=== PATIENT | female | born 1945 | race Caucasian/White ===

== ENCOUNTER 2020-04-26 | Outpatient (REF) | payer MEDICARE, SELFPAY | END 2020-04-26 00:01 | disposition home or self-care (01) | LOC: HO.VC | PROVIDERS: Visit Provider Internal Medicine | DX: Z23 Encounter for immunization (principal) | CPT/HCPCS: 0011A ==

== ENCOUNTER 2020-05-23 | Outpatient (REF) | payer MEDICARE, SELFPAY | END 2020-05-23 00:01 | disposition home or self-care (01) | LOC: HO.VC | PROVIDERS: Visit Provider Internal Medicine | DX: Z23 Encounter for immunization (principal) | CPT/HCPCS: 0012A ==

== ENCOUNTER 2020-08-22 08:38 | Outpatient (REF) | payer MEDICARE, SELFPAY ==
--- NOTE | ~2020-08-22 | MM_ITS ---
EXAMINATION: MM SCREENING DIGITAL BREAST TOMOSYNTHESIS, BILATERAL CLINICAL INFORMATION: Screening. Asymptomatic. The lifetime risk of breast cancer based on the Tyrer-Cuzick Model is 2%. COMPARISON: Mammography: 06/24/2018, 09/26/2014 TECHNIQUE: Digital breast tomosynthesis is performed in both the craniocaudal and mediolateral oblique views along with computer-aided detection (CAD). Synthesized 2D images are generated from the tomosynthesis. FINDINGS: There are scattered areas of fibroglandular density (ACR BI-RADS breast composition Category b). There are no significant masses, abnormal calcifications, or other abnormalities. Parenchymal pattern is similar to prior exams. The axilla and skin contours are unremarkable. MM/MM tomosynthesis screening BI IMPRESSION: No mammographic evidence of malignancy. ASSESSMENT: BI-RADS 1: Negative RECOMMENDATION: Routine annual mammography screening. This patient's information was entered into a reminder system with a target due date for their next mammogram.
[2020-08-22 11:44] LABS: Hematocrit 38.1 % (37-47); Hemoglobin 11.9 g/dl (12.0-16.0); Mean Corpuscular HGB Conc 31.2 g/dl (31.0-35.0); Mean Corpuscular Hemoglobin 31.6 pg (27.0-33.0); Mean Corpuscular Volume 101.1 fL (80-98); Mean Platelet Volume 11.5 fL (9.4-12.3); Platelet Count 255 X10*3/uL (160-400); Red Blood Count 3.77 X10*6/uL (4.20-5.50); Red Cell Distribution Width 13.2 % (11.0-16.0); White Blood Count 5.5 X10*3/uL (4.8-10.8)
[2020-08-22 12:15] LABS: Alanine Aminotransferase 14 U/L (0-31); Albumin Level 4.4 g/dL (3.5-5.0); Alkaline Phosphatase 64 U/L (39-117); Anion Gap 14 (12-20); Aspartate Amino Transferase 18 U/L (5-31); Bilirubin Direct 0.2 mg/dL (0.0-0.5); Bilirubin Total 0.7 mg/dL (0.0-1.0); Blood Urea Nitrogen 25 mg/dL (9-16); Calcium 9.9 mg/dL (8.4-10.2); Carbon Dioxide 28 mmol/L (22-29); Chloride 105 mmol/L (96-108); Cholesterol 240 mg/dL; Estimated Glomerular Filt Rate > 60; Glucose Random 99 mg/dL (60-115); HDL Cholesterol 96 mg/dL; LDL Cholesterol Calculated 127 mg/dl; Potassium 4.8 mmol/L (3.3-5.1); Sodium 142 mmol/L (135-145); Triglycerides 87 mg/dL
[2020-08-22 12:26] LABS: Thyroid Stimulating Hormone 2.77 uIU/mL (0.32-4.0)
[2020-08-22 12:54] LABS: Folate 19.6 ng/mL (> or = 4.0); Vitamin B12 334 pg/mL (200-900)
[2020-08-26 11:52] LABS: Vitamin D 25-OH, D2 <4 ng/mL; Vitamin D 25-OH, D3 61 ng/mL; Vitamin D 25-OH, Total 61 ng/mL (30-100)
== END 2020-08-22 08:39 | disposition home or self-care (01) ==
LOC: HO.MAMMO 08:38
PROVIDERS: PCP Internal Medicine; Visit Provider Internal Medicine
DX: Z12.31 Encounter for screening mammogram for malignant neoplasm of breast (principal); I10 Essential (primary) hypertension
CPT/HCPCS: 36415; 77063; 77067; 80048; 80061; 80076; 82306; 82607; 82746; 84443; 85027

== ENCOUNTER 2021-04-06 08:36 | Outpatient (REF) | payer MEDICARE, SELFPAY ==
[2021-04-06 11:36] LABS: Appearance Urine CLEAR; Color Urine YELLOW; Glucose Urine UA NEG (NEG); Leukocyte Esterase Urine NEG (NEG); Nitrite Urine NEG (NEG); Urine Blood NEG (NEG); Urine Ketones NEG (NEG); Urine Protein TRACE MG/DL (NEG-TRACE)
[2021-04-06 11:49] LABS: Hematocrit 39.6 % (37.0-47.0); Hemoglobin 12.5 g/dl (12.0-16.0); Mean Corpuscular HGB Conc 31.6 g/dl (31.0-35.0); Mean Corpuscular Hemoglobin 32.2 pg (27.0-33.0); Mean Corpuscular Volume 102.1 fL (80.0-98.0); Mean Platelet Volume 11.7 fL (9.4-12.3); Platelet Count 226 X10*3/uL (160-400); Red Blood Count 3.88 X10*6/uL (4.20-5.50); Red Cell Distribution Width 13.2 % (11.0-16.0)
[2021-04-06 12:11] LABS: Alanine Aminotransferase 12 U/L (0-31); Albumin Level 4.1 g/dL (3.5-5.0); Alkaline Phosphatase 60 U/L (39-117); Anion Gap 12 (12-20); Aspartate Amino Transferase 14 U/L (5-31); Bilirubin Direct 0.3 mg/dL (0.0-0.5); Bilirubin Total 0.7 mg/dL (0.0-1.0); Blood Urea Nitrogen 20 mg/dL (9-16); Calcium 9.9 mg/dL (8.4-10.2); Carbon Dioxide 28 mmol/L (22-29); Chloride 105 mmol/L (96-108); Cholesterol 225 mg/dL; Estimated Glomerular Filt Rate > 60; Glucose Random 103 mg/dL (60-115); HDL Cholesterol 81 mg/dL; LDL Cholesterol Calculated 129 mg/dl; Potassium 4.3 mmol/L (3.3-5.1); Sodium 141 mmol/L (135-145); Total Protein 6.7 g/dL (6.5-8.0); Triglycerides 77 mg/dL
[2021-04-06 12:30] LABS: Thyroid Stimulating Hormone 3.06 uIU/mL (0.32-4.0)
== END 2021-04-06 08:37 | disposition home or self-care (01) ==
LOC: HO.HMGCLDS 08:36
PROVIDERS: PCP Internal Medicine; Visit Provider Internal Medicine
DX: I10 Essential (primary) hypertension (principal)
CPT/HCPCS: 36415; 80048; 80061; 80076; 81003; 84443; 85027

== ENCOUNTER 2021-04-10 11:54 | Emergency (ER) | payer MEDICARE, SELFPAY ==
--- NOTE | ~2021-04-10 | CT_ITS ---
EXAMINATION: CTA OF THE HEAD/NECK CLINICAL INFORMATION: Dizziness COMPARISON: None. TECHNIQUE: A routine non contrast head CT was performed followed by a 70 mL bolus of Omnipaque 350. Subsequent multidetector helical imaging was performed of the head and neck. Delayed post contrast imaging was also performed through the head. Multiplanar reformats and MIP were also obtained. Internal carotid artery stenoses are assessed in accordance with NASCET criteria unless otherwise indicated. This CT examination was performed using dose optimization techniques as appropriate, variously including the following: *Automated exposure control *Adjustment of mA and/or kV according to patient size (this includes techniques or standardized protocols for targeted exams where dose is matched to indication/reason for exam; i.e. extremities or head) *Use of iterative reconstruction technique DLP: 2230 mGy-cm. FINDINGS: CT HEAD: There is no evidence of acute intracranial hemorrhage or territorial infarction. No abnormal mass effect or midline shift is seen. [place] to white matter differentiation is well preserved. No extra-axial fluid collections are identified. No suspicious leptomeningeal or parenchymal enhancement on the post-contrast images. No hydrocephalus. Proportional prominence of the ventricles and sulcal spaces is consistent with mild volume loss. Patchy periventricular and deep white matter hypoattenuation is consistent with mild small vessel ischemic changes. The osseous structures and soft tissues are normal. Partially opacified left sphenoid sinus. The mastoid air cells and visualized portions of the paranasal sinuses are otherwise well aerated. CTA NECK: The aortic arch is of normal caliber and the origins of the great vessels are patent without evidence of significant stenosis. Calcification at the origin of the left vertebral artery without significant stenosis. The cervical portion of the vertebral arteries are patent bilaterally. No luminal irregularities in the common carotid arteries and the carotid bifurcations are patent bilaterally. Calcifications at the origins of the internal carotid arteries without flow-limiting stenosis. The cervical portion of the internal carotid arteries are of normal caliber. The laryngeal structures and pharyngeal mucosal spaces are unremarkable. The oral cavity appears normal. The parotid and submandibular glands are normal. No pathologically enlarged lymph nodes. 0.6 cm hypoattenuating nodule in the right lobe of the thyroid gland. No follow-up imaging recommended. The lung apices are clear without evidence of pneumothorax. Spinal alignment is maintained. Mild cervical spondylosis is noted. CTA HEAD: The intradural portion of the vertebral arteries are of normal caliber. The basilar, superior cerebellar, and posterior communicating arteries are patent. The posterior, middle, and anterior cerebral arteries are of normal caliber without evidence of significant luminal irregularity. No definite intracranial aneurysms. CT/CT angio head neck IMPRESSION: 1. No acute vascular abnormality. No large vessel occlusion or flow-limiting stenosis. 2. There is calcification noted at the origin of the left vertebral artery, though no significant stenosis associated. 3. No acute intracranial finding.
[2021-04-10 11:56] VITALS: BP 166/71; PULSE 79; RESP 18; TEMP 36.9; O2SAT 99; BMI 23.3
--- NOTE | 2021-04-10 12:01 | ECG_ITS ---
Test Reason : general medication Blood Pressure : / mmHG Vent. Rate : 097 BPM Atrial Rate : 097 BPM P-R Int : 120 ms QRS Dur : 084 ms QT Int : 340 ms P-R-T Axes : 068 062 026 degrees QTc Int : 431 ms Sinus rhythm with Premature atrial complexes Nonspecific ST abnormality Abnormal ECG No previous ECGs available Referred By: Generic ED Physician Electronically Signed By:Michael Pierce
[2021-04-10 12:37] LABS: MANUAL DIFF FLAG NO
[2021-04-10 12:43] LABS: Basophils Percent Auto 0.5 % (0-2); Eosinophils Absolute Auto 0.1 X10*3/uL (0.0-0.4); Eosinophils Percent Auto 0.6 % (0-4); Hematocrit 40.6 % (37.0-47.0); Hemoglobin 12.8 g/dl (12.0-16.0); Imm Gran Abs Auto 0.03 X10*3/uL (0.00-0.03); Imm Gran Pct Auto 0.4 % (0.0-0.4); Lymphocytes Absolute Auto 1.7 X10*3/uL (1.2-4.9); Lymphocytes Percent Auto 21.1 % (20-40); Mean Corpuscular HGB Conc 31.5 g/dl (31.0-35.0); Mean Corpuscular Hemoglobin 32.3 pg (27.0-33.0); Mean Corpuscular Volume 102.5 fL (80.0-98.0); Mean Platelet Volume 11.3 fL (9.4-12.3); Monocytes Absolute Auto 0.7 X10*3/uL (0.1-1.2); Monocytes Percent Auto 8.7 % (2-11); Neutrophils Absolute Auto 5.6 x10*3/uL (2.0-8.3); Neutrophils Percent Auto 68.7 % (45-73); Platelet Count 237 X10*3/uL (160-400); Red Blood Count 3.96 X10*6/uL (4.20-5.50); Red Cell Distribution Width 13.1 % (11.0-16.0); White Blood Count 8.1 X10*3/uL (4.8-10.8)
[2021-04-10 13:00] LABS: Anion Gap 15 (12-20); Blood Urea Nitrogen 20 mg/dL (9-16); Calcium 10.1 mg/dL (8.4-10.2); Carbon Dioxide 28 mmol/L (22-29); Chloride 103 mmol/L (96-108); Creatinine Clr Calc Pharmacy 49.6; Estimated Glomerular Filt Rate > 60; Glucose Random 101 mg/dL (60-115); Potassium 4.6 mmol/L (3.3-5.1); Sodium 141 mmol/L (135-145)
[2021-04-10 18:14] VITALS: BP 157/76; PULSE 97; RESP 16; O2SAT 93
[2021-04-10 19:26] LABS: Appearance Urine CLEAR; Color Urine YELLOW; Glucose Urine UA NEG (NEG); Leukocyte Esterase Urine NEG (NEG); Nitrite Urine NEG (NEG); Urine Blood NEG (NEG); Urine Ketones 15 MG/DL (NEG); Urine Protein NEG (NEG-TRACE)
[2021-04-10 22:14] VITALS: BP 163/72; PULSE 85
[2021-04-10 22:15] VITALS: BP 154/74; PULSE 93
[2021-04-10 22:16] VITALS: BP 128/73; PULSE 93; PULSE 97; RESP 16; TEMP 37.1; O2SAT 99
--- NOTE | 2021-04-10 22:18 | ED_ITS ---
HPI - General Adult General Chief complaint: General Medical Stated complaint: stroke? Time Seen by Provider: 04/10/21 21:52 History of Present Illness HPI narrative: Patient is a 75-year-old female with a history of hypertension high cholesterol. Has been having palpitation. Patient feels her heart going slightly fast also noted that it is irregular. Patient denies any fever chills no cough no congestion or upper respiratory symptoms. Positive episode of loss in vision patient claims that this starts usually from the left eye and moved to the right eye. No particular trigger not related to the palpitation. There is no fever no chills no coughing or congestion or upper respiratory symptoms. There is no diaphoresis. Patient at times feels lightheaded. It lasts for few seconds. Never actually passed out. No focal weakness. No history of cancer. No change in color stool. Not associated with specific movement. Symptoms been on and off for the last 2 weeks. History of anxiety with similar symptoms in the past. Patient is from home. Related Data Home Medications Medication Instructions Recorded Confirmed cholecalciferol (vitamin D3) 50 50 mcg PO DAILY 02/08/20 02/17/20 mcg (2,000 unit) tablet Previous Rx's Medication Instructions Recorded lorazepam 0.5 mg tablet 0.5 mg PO BEDTIME #30 tab 10/12/20 simvastatin 20 mg tablet 20 mg PO BEDTIME #90 tab 12/31/20 amlodipine 5 mg tablet 5 mg PO DAILY #90 tab 04/06/21 levothyroxine 50 mcg tablet 50 mcg PO DAILY #90 tab 04/06/21 Allergies Allergy/AdvReac Type Severity Reaction Status Date / Time Sulfa (Sulfonamide Allergy Unknown RASH, Verified 09/05/20 11:13 Antibiotics) HIVES, [SULFA (SULFONAMIDE swelling, ANTIBIOTICS)] hives,itching Review of Systems Review of Systems: No fever no chills no chest pain or shortness of breath. Positive dizziness on and off. Positive history of anxiety Yes all other systems are reviewed and are negative [facility] Past Medical History Attestation statement: The following information was validated with the patient. Medical History Benign essential HTN Surgical History History of biopsy History of inguinal hernia repair History of parathyroidectomy Family History Family History Father S/P CABG x 4 Mother Hyperlipidemia Hypertension Brother Atherosclerosis Social History Social History Housing: House Alcohol intake: never Patient Tobacco Use Status: Never used Tobacco Advance Directives: No Current occupational status: retired Physical Exam Vital Signs: Vital Signs: Last Vital Signs Temp 98.7 F 04/10/21 22:16 Pulse 97 04/10/21 22:16 Resp 16 04/10/21 22:16 BP 128/73 04/10/21 22:16 Pulse Ox 99 04/10/21 22:16 BMI result Body Mass Index 23.3 Appearance: Alert. Oriented X3. No acute distress. Eyes: Pupils equal, round and reactive to light. Extraocular muscle intact. Intra-ocular pressure was 18 on the right 16 on the left. No evidence for glaucoma. Visual acuity being checked. ENT: Pharynx normal. Neck: Normal inspection. Neck supple. No lymph nodes noted. No crepitus CVS: Normal heart rate and rhythm. Pulses normal. Normal S1 and S2 Respiratory: No respiratory distress. Breath sounds normal. No Wheezing. No rales Abdomen: Soft and nontender. No rigidity. No distention. good BS x4 Skin: Skin warm and dry. Normal skin color. Normal skin turgor. Extremities: No lower extremity edema. Neurovascular intact to all extremities. No Lacerations. No Rash Neuro: Oriented X 3. No motor deficit. No sensory deficit. Moving all extermities. No slurred speech NIH Stroke Scale Internal: Initial- Upon Arrival Level of Consciousness: Alert Level of Consciousness Questions: Answers both questions correctly Level of Consciousness Commands: Performs both tasks correctly Best Gaze: Normal Visual: No visual loss Facial Palsy: Normal Motor Arm (Right): No drift Motor Arm (Left): No drift Motor Leg (Right): No drift Motor Leg (Left): No drift Limb Ataxia: Absent Sensory: Normal Best Language: No aphasia Dysarthia: Normal Extinction and Inattention: No abnormality Score: 0 Medical Decision Making MDM Narrative Medical decision making narrative: Patient vision grossly intact. 20-50 bilaterally. Intra-ocular pressure was less than 20 bilaterally, no evidence for glaucoma. Patient's urine is grossly negative for any acute evidence of infection. CT head was grossly negative for any acute evidence of bleeding no acute evidence of stroke. No evidence of fracture. CTA showed no major vessel occlusion. Neurologically grossly intact. NIH stroke scale 0. sed rate and CRP was low. No evidence for temporal arteritis. History of similar episodes with anxiety. Will discharge patient home. Patient had on EKG in sinus arrhythmia. WA QRS QT within normal limits is no acute ST segment elevation heart rate is approximately 90. Never had any syncopal episode. Medical Records Medical records reviewed: Yes I reviewed the patient's medical records. Lab Data Result diagrams: 04/10/21 12:19 04/10/21 12:19 Labs: Lab Results 04/10/21 04/10/21 04/10/21 Range/Units 12:19 12:19 18:59 WBC 8.1 (4.8-10.8) X10*3/uL RBC 3.96 L (4.20-5.50) X10*6/uL Hgb 12.8 (12.0-16.0) g/dl Hct 40.6 (37.0-47.0) % MCV 102.5 H (80.0-98.0) fL MCH 32.3 (27.0-33.0) pg MCHC 31.5 (31.0-35.0) g/dl RDW 13.1 (11.0-16.0) % Plt Count 237 (160-400) X10*3/uL MPV 11.3 (9.4-12.3) fL Immature Gran % (Auto) 0.4 (0.0-0.4) % Neut % (Auto) 68.7 (45-73) % Lymph % (Auto) 21.1 (20-40) % [place] % (Auto) 8.7 (2-11) % Eos % (Auto) 0.6 (0-4) % Baso % (Auto) 0.5 (0-2) % Lymph # (Auto) 1.7 (1.2-4.9) X10*3/uL [place] # (Auto) 0.7 (0.1-1.2) X10*3/uL Eos # (Auto) 0.1 (0.0-0.4) X10*3/uL Baso # (Auto) 0.0 (0.0-0.2) X10*3/uL Abs Immat Gran (auto) 0.03 (0.00-0.03) X10*3/uL Absolute Neuts (auto) 5.6 (2.0-8.3) x10*3/uL Absolute Nucleated RBC 0.000 (0.0-0.012) X10*3/uL Nucleated RBC % (auto) 0.0 (0.0-0.2) /100WBC ESR (0-20) MM/HR Sodium 141 (135-145) mmol/L Potassium 4.6 (3.3-5.1) mmol/L Chloride 103 (96-108) mmol/L Carbon Dioxide 28 (22-29) mmol/L Anion Gap 15 (12-20) BUN 20 H (9-16) mg/dL Creatinine 0.88 (0.5-1.4) mg/dL Estim Creat Clear Calc 49.6 Estimated GFR > 60 Random Glucose 101 (60-115) mg/dL Calcium 10.1 (8.4-10.2) mg/dL Troponin I High Sens (<3.5-17.0) ng/L C-Reactive Protein (< or = 0.50) mg/dL Urine Color YELLOW Urine Appearance CLEAR Urine pH 6.0 (5.0-8.0) Ur Specific [place] 1.020 (1.005-1.025) Urine Protein NEG (NEG-TRACE) MG/DL Urine Glucose (UA) NEG (NEG) MG/DL Urine Ketones 15 (NEG) MG/DL Urine Blood NEG (NEG) Urine Nitrite NEG (NEG) Ur Leukocyte Esterase NEG (NEG) 04/10/21 04/10/21 04/10/21 Range/Units 22:46 22:46 22:46 WBC (4.8-10.8) X10*3/uL RBC (4.20-5.50) X10*6/uL Hgb (12.0-16.0) g/dl Hct (37.0-47.0) % MCV (80.0-98.0) fL MCH (27.0-33.0) pg MCHC (31.0-35.0) g/dl RDW (11.0-16.0) % Plt Count (160-400) X10*3/uL MPV (9.4-12.3) fL Immature Gran % (Auto) (0.0-0.4) % Neut % (Auto) (45-73) % Lymph % (Auto) (20-40) % [place] % (Auto) (2-11) % Eos % (Auto) (0-4) % Baso % (Auto) (0-2) % Lymph # (Auto) (1.2-4.9) X10*3/uL [place] # (Auto) (0.1-1.2) X10*3/uL Eos # (Auto) (0.0-0.4) X10*3/uL Baso # (Auto) (0.0-0.2) X10*3/uL Abs Immat Gran (auto) (0.00-0.03) X10*3/uL Absolute Neuts (auto) (2.0-8.3) x10*3/uL Absolute Nucleated RBC (0.0-0.012) X10*3/uL Nucleated RBC % (auto) (0.0-0.2) /100WBC ESR 11 (0-20) MM/HR Sodium (135-145) mmol/L Potassium (3.3-5.1) mmol/L Chloride (96-108) mmol/L Carbon Dioxide (22-29) mmol/L Anion Gap (12-20) BUN (9-16) mg/dL Creatinine (0.5-1.4) mg/dL Estim Creat Clear Calc Estimated GFR Random Glucose (60-115) mg/dL Calcium (8.4-10.2) mg/dL Troponin I High Sens 9.4 (<3.5-17.0) ng/L C-Reactive Protein 0.08 (< or = 0.50) mg/dL Urine Color Urine Appearance Urine pH (5.0-8.0) Ur Specific [place] (1.005-1.025) Urine Protein (NEG-TRACE) MG/DL Urine Glucose (UA) (NEG) MG/DL Urine Ketones (NEG) MG/DL Urine Blood (NEG) Urine Nitrite (NEG) Ur Leukocyte Esterase (NEG) Discharge Plan Discharge Clinical Impression: Heart palpitations, Anxiety Patient Disposition: Home, Self-Care Instructions: Heart Palpitations (ED), Anxiety (ED) Prescriptions: No Action lorazepam 0.5 mg tablet 0.5 mg PO BEDTIME Qty: 30 RF: 0 simvastatin 20 mg tablet 20 mg PO BEDTIME Qty: 90 RF: 1 levothyroxine 50 mcg tablet 50 mcg PO DAILY Qty: 90 RF: 1 amlodipine 5 mg tablet 5 mg PO DAILY Qty: 90 RF: 1 cholecalciferol (vitamin D3) 50 mcg (2,000 unit) tablet 50 mcg PO DAILY RF: 0 Referrals: Sandip Tinoco MD [Primary Care Provider] - 2 days
[2021-04-11] LABS: C Reactive Protein 0.08 mg/dL (< or = 0.50)
[2021-04-11 00:06] LABS: Troponin-I High Sensitivity 9.4 ng/L (<3.5-17.0)
[2021-04-11] MEDS: iohexoL 350 MG/ML 100 ML INFUS..BTL 70 ML IV (00:07)
[2021-04-11 00:19] LABS: Erythrocyte Sedimentation Rate 11 MM/HR (0-20)
[2021-04-11 01:03] VITALS: BP 160/72; PULSE 79; RESP 15; O2SAT 99
== END 2021-04-11 01:25 | disposition home or self-care (01) ==
PROVIDERS: Emergency Provider Emergency Medicine Emergency Medical Services; PCP Internal Medicine
DX: R00.2 Palpitations (principal); F41.9 Anxiety disorder, unspecified; I10 Essential (primary) hypertension; E78.5 Hyperlipidemia, unspecified; Z79.02 Long term (current) use of antithrombotics/antiplatelets; Z79.899 Other long term (current) drug therapy
CPT/HCPCS: 36415; 70496; 70498; 80048; 81003; 84484; 85025; 85652; 86140; 93005; 99284; Q9967

== ENCOUNTER 2022-03-07 14:45 | Outpatient (REF) | payer MEDICARE, SELFPAY ==
[2022-03-07 16:31] LABS: Hematocrit 38.3 % (37.0-47.0); Hemoglobin 12.3 g/dl (12.0-16.0); Mean Corpuscular HGB Conc 32.1 g/dl (31.0-35.0); Mean Corpuscular Hemoglobin 32.5 pg (27.0-33.0); Mean Corpuscular Volume 101.1 fL (80.0-98.0); Mean Platelet Volume 12.2 fL (9.4-12.3); Platelet Count 225 X10*3/uL (160-400); Red Blood Count 3.79 X10*6/uL (4.20-5.50); Red Cell Distribution Width 12.8 % (11.0-16.0); White Blood Count 6.6 X10*3/uL (4.8-10.8)
[2022-03-07 16:33] LABS: Appearance Urine Clear; Color Urine Yellow; Glucose Urine UA Negative (Negative); Leukocyte Esterase Urine Negative (Negative); Nitrite Urine Negative (Negative); PH 5.5 (5.0-9.0); Urine Blood Negative (Negative); Urine Ketones Negative (Negative); Urine Protein Negative (Neg-Trace)
[2022-03-07 17:04] LABS: Alanine Aminotransferase 11 U/L (0-31); Albumin Level 4.4 g/dL (3.5-5.0); Alkaline Phosphatase 75 U/L (39-117); Anion Gap 12 (12-20); Aspartate Amino Transferase 14 U/L (5-31); Bilirubin Direct 0.2 mg/dL (0.0-0.5); Bilirubin Total 0.5 mg/dL (0.0-1.0); Blood Urea Nitrogen 19 mg/dL (9-16); Calcium 9.3 mg/dL (8.4-10.2); Carbon Dioxide 28 mmol/L (22-29); Chloride 103 mmol/L (96-108); Cholesterol 216 mg/dL; Estimated Glomerular Filt Rate > 60; Glucose Random 98 mg/dL (60-115); HDL Cholesterol 89 mg/dL; LDL Cholesterol Calculated 113 mg/dl; Potassium 4.1 mmol/L (3.3-5.1); Sodium 139 mmol/L (135-145); Thyroid Stimulating Hormone 3.05 uIU/mL (0.32-4.0); Total Protein 6.8 g/dL (6.5-8.0); Triglycerides 70 mg/dL
== END 2022-03-07 14:46 | disposition home or self-care (01) ==
LOC: HO.HMGCLDS 14:45
PROVIDERS: PCP Internal Medicine; Visit Provider Internal Medicine
DX: Z00.00 Encounter for general adult medical examination without abnormal findings (principal); I10 Essential (primary) hypertension
CPT/HCPCS: 36415; 80048; 80061; 80076; 81003; 84443; 85027

== ENCOUNTER 2022-09-19 14:24 | Outpatient (AMB) | payer MEDICARE, SELFPAY ==
--- NOTE | 2022-09-19 14:26 | MHC.PC.OV ---
Vital Signs 09/19/22 14:28 Height 5 ft 5 in Weight 123 lb BMI 20.5 BP 130/76 Blood Pressure Location Lt brachial Position Sitting Pulse 73 Pulse Source Pulse Oximeter Pulse Oximetry (%) 97 Oxygen Delivery Method Room Air Intake Visit Reasons: Annual Exam Intake Note: Patient is here today for a physical. Travel Rn Or Required: No Assistant Kitchen Manager: Not Required per policy Accompanied by: Self / Same As Patient Allergies meperidine [From Demerol] Allergy (Intermediate, Verified 10/04/22 16:36) Rash Sulfa (Sulfonamide Antibiotics) [SULFA (SULFONAMIDE ANTIBIOTICS)] Allergy (Unknown, Verified 10/04/22 16:36) RASH, HIVES, swelling, hives,itching Medication List - Last Reconciled 10/04/22 by Sandip Tinoco MD amlodipine 5 mg PO DAILY cholecalciferol (vitamin D3) 50 mcg PO DAILY levothyroxine 50 mcg PO DAILY lorazepam 0.5 mg PO BEDTIME PRN simvastatin 20 mg PO BEDTIME Tobacco use date assessed: 09/19/22 Fall risk assessment: No Falls in past year Last assessed Fall Risk: 09/19/22 Dental Screening Dental Screen Date: 09/19/22 Did you have a dental visit in the last 12 months?: Yes Did you have a dental problem in the last 6 months where you did not have access to dental care?: No Was dental information given to patient?: Patient has dentist HPI Annual Exam HPI Details 77-year-old female presents to the office requesting an annual physical. [facility] Medical History Acquired hypothyroidism Benign essential HTN Surgical History History of biopsy History of inguinal hernia repair History of parathyroidectomy History of tooth extraction Family History Father S/P CABG x 4 Mother Hyperlipidemia Hypertension Brother Atherosclerosis Social History Housing: House Alcohol intake: never Patient Tobacco Use Status: Never used Tobacco e-Cigarette/Vaping Use: Never Used Second Hand Smoke Exposure: No service: No Current occupational status: retired Cognitive needs: No Hearing needs: No Vision needs: Yes (Glasses) Questionnaire PHQ-9 Over the last 2 weeks, how often have you been bothered by any of the following problems? 1. Little interest or pleasure in doing things: not at all 2. Feeling down, depressed, or hopeless: not at all 3. Trouble falling or staying asleep, or sleeping too much: not at all 4. Feeling tired or having little energy: not at all 5. Poor appetite or overeating: not at all 6. Feeling bad about yourself - or that you are a failure or have let yourself or your family down: not at all 7. Trouble concentrating on things, such as reading the newspaper or watching television: not at all 8. Moving or speaking so slowly that other people could have noticed. Or the opposite - being so fidgety or restless that you have been moving around a lot more than usual: not at all 9. Thoughts that you would be better off or of hurting yourself in some way: not at all Total score: 0 Depression Screening Interpretation: Negative Source: Developed by Drs. Lamont Nieves, Sole Brito, Sony Kimball and colleagues, with an educational do from [employer]. Thrive Questionnaire Date Thrive assessed: 09/19/22 I am a: Patient What is your living situation today?: I have a steady place to live Within the past 12 months, did the food you bought not last and you didn't have the money to get more?: Never true Within the past 12 months, did you worry whether your food would run out before you got money to buy more?: Never true Do you have trouble paying for medicines?: No Do you have trouble getting transportation to medical appointments?: No Do you have trouble paying your heating and electricity bill?: No Do you have trouble taking care of your child, family member or friend?: No Do you have trouble with day-to-day activities such as bathing, preparing meals, shopping, managing finances, etc.?: No Are you currently unemployed and looking for a job?: No Are you interested in more education?: No Currently or been in a relationship where the following occur: no concerns reported AUDIT C Alcohol Use Questionnaire (AUDIT-C) 1. How often do you have a drink containing alcohol?: Never Total Score: 0 GIULIANA-7 AMB Questionnaire GIULIANA-7 Date GIULIANA - 7 assessed: 09/19/22 Feeling nervous, anxious, or on edge: 3 = Nearly every day Not being able to stop or control worryin = Several days Worrying too much about different things: 1 = Several days Trouble relaxin = Nearly every day Being so restless that it is hard to sit still: 1 = Several days Becoming easily annoyed or irritable: 3 = Nearly every day Feeling afraid as if something awful might happen: 1 = Several days Total GIULIANA-7 score (0-4 normal; 5-9 mild; 10-14 moderate; 15-21 severe): 13 Source: Developed by Drs. Lamont Nieves, Sole Brito, Sony Kimball and colleagues, with an educational do from [employer]. Physical exam (Primary Care) Vital Signs: Last Vital Signs Pulse 73 09/19/22 14:28 BP 130/76 09/19/22 14:28 Pulse Ox 97 09/19/22 14:28 Oxygen Delivery Method Room Air 09/19/22 14:28 BMI result Body Mass Index 20.5 Tobacco/Smoking Status: Tobacco use Status Tobacco use date assessed 09/19/22 09/19/22 14:35 Patient Tobacco Use Status Never used Tobacco 09/19/22 14:35 e-Cigarette/Vaping Use Never Used 09/19/22 14:35 PHQ-9: PHQ-9 Score PHQ-9: Total score 0 09/19/22 14:35 Depression Screening Interpretation: Negative Thrive Assessment: Date of Thrive Assessment Date Thrive assessed 09/19/22 09/19/22 14:35 Currently or been in a relationship where the following occur: no concerns reported Const General: cooperative, healthy appearing and comfortable HENMT Head: Yes normal to inspection and Yes atraumatic Eyes General: appearance normal, both eyes and all related structures Neck Neck: Yes normal visual inspection and Yes full ROM Chest Chest palpation & inspection: normal inspection of the chest Resp Effort & Inspection: normal respiratory effort Auscultation: clear to auscultation bilaterally Cardio Jugular venous distension: no JVD Palpation: normal PMI Rate: regular rate Heart sounds: S1 normal heart sound present and S2 normal heart sound present GI Palpation (GI): Soft to palpation and No hepatosplenomegaly present Extrem General: Yes normal to inspection and Yes full ROM Assessment and Plan Assessment & Plan (1) Annual physical exam: Code(s): Z00.00 - Encounter for general adult medical examination without abnormal findings Plan: Blood work reviewed. Will call with results. (2) Benign essential HTN: Code(s): I10 - Essential (primary) hypertension (3) Generalized anxiety disorder: Code(s): F41.1 - Generalized anxiety disorder (4) Acquired hypothyroidism: Code(s): E03.9 - Hypothyroidism, unspecified Medications: New lorazepam 0.5 mg PO BEDTIME PRN 30 tabs 1RF anxiety Discontinued lorazepam Discontinued Reason: Doctor's Order 0.5 mg PO BEDTIME 30 tabs 0RF Coding Level of Care Code Est Pt Prev Care >65y(52043) Diagnoses Annual physical exam Z00.00 Benign essential HTN I10 Generalized anxiety disorder F41.1 Acquired hypothyroidism E03.9
[2022-09-19 14:28] VITALS: BP 130/76; PULSE 73; O2SAT 97; BMI 20.5
== END 2022-09-19 15:04 | disposition home or self-care (01) ==
PROVIDERS: PCP Internal Medicine; Visit Provider Internal Medicine
DX: Z00.00 Encounter for general adult medical examination without abnormal findings (principal); I10 Essential (primary) hypertension; F41.1 Generalized anxiety disorder; E03.9 Hypothyroidism, unspecified
CPT/HCPCS: 99397

== ENCOUNTER 2022-10-11 10:36 | Outpatient (AMB) | payer MEDICARE, SELFPAY ==
--- NOTE | 2022-10-11 10:38 | AM.OFFWIN_ITS ---
Intake Vital Signs 10/11/22 10:41 Height 5 ft 5 in BP 120/60 Blood Pressure Location Lt brachial Position Sitting Pulse 97 Pulse Source Pulse Oximeter Temp 96.8 F Temp Source Temporal Artery Scan Pulse Oximetry (%) 100 Oxygen Delivery Method Room Air Intake Visit Reasons: EP bump inside nose (lobby) Intake Note: Pt is here c/o having a bump inside her nose. Patient Tobacco Use Status: Never used Tobacco Allergies meperidine [From Demerol] Allergy (Intermediate, Verified 10/11/22 10:40) Rash Sulfa (Sulfonamide Antibiotics) [SULFA (SULFONAMIDE ANTIBIOTICS)] Allergy (Unknown, Verified 10/11/22 10:40) RASH, HIVES, swelling, hives,itching Do you need a note to return to daycare/school/sports/work: No HPI EP bump inside nose (lobby) HPI Details 77-year-old female presents to the walk-in for a sick visit. Patient has a persistently leaking lesion at the base of her right nostril. He she has seen the sheet combining operator who did a biopsy. The biopsy showed an ulcerative lesion with granulation base. She was put on mupirocin ointment and antibiotics. She has had minimal relief. She was then referred to an oral surgeon for possible excision of the lesion. The oral surgeon declined to do the procedure and patient does not know what to do next. She continues to have some drainage from the affected area. [facility] Medical History Acquired hypothyroidism Benign essential HTN Surgical History History of biopsy History of inguinal hernia repair History of parathyroidectomy History of tooth extraction Family History Father S/P CABG x 4 Mother Hyperlipidemia Hypertension Brother Atherosclerosis Social History Housing: House Alcohol intake: never Patient Tobacco Use Status: Never used Tobacco e-Cigarette/Vaping Use: Never Used Second Hand Smoke Exposure: No service: No Current occupational status: retired Cognitive needs: No Hearing needs: No Vision needs: Yes (Glasses) Physical Exam Vital Signs: Last Vital Signs Temp 96.8 F 10/11/22 10:41 Pulse 97 10/11/22 10:41 BP 120/60 10/11/22 10:41 Pulse Ox 100 10/11/22 10:41 Oxygen Delivery Method Room Air 10/11/22 10:41 Skin Other: Upper lip: Weepy granulation tissue drifting down from the edge of the septum. Nontender. Assessment & Plan Assessment & Plan (1) Ulcer of nose: Code(s): J34.0 - Abscess, furuncle and carbuncle of nose Plan: I will get an opinion from the general surgeon to see if he can completely remove the ulcerative part. Spoke for 15 minutes with her sheet combining operator at [facility]. The official pathology reading stated ulcer with granu lation tissue. No evidence of malignancy. In the general surgeon is not able to help, I will seek an opinion from the plastic surgeon. Coding Level of Care Code Est Pt Level 4 (17455) Diagnoses Ulcer of nose J34.0
[2022-10-11 10:41] VITALS: BP 120/60; PULSE 97; TEMP 36; O2SAT 100
== END 2022-10-11 12:48 | disposition home or self-care (01) ==
PROVIDERS: PCP Internal Medicine; Visit Provider Internal Medicine
DX: J34.0 Abscess, furuncle and carbuncle of nose (principal)
CPT/HCPCS: 99214

== ENCOUNTER → 2022-10-11 14:00 | Outpatient (BNV) | payer MEDICARE, SELFPAY ==
--- NOTE | 2022-10-11 14:01 | A.ECONSULT ---
E-Consult Requesting Provider: Earnest Reason for request: Upper lip lesion Was there a discussion with the requesting provider?: No Total time spent: >5 minutes Consulting Provider Opinion: Looks like the lesion can be wedged out. I can see her in the office to evaluate further if that's ok with you.
== END ==
PROVIDERS: PCP Internal Medicine; Visit Provider Surgery
DX: K13.70 Unspecified lesions of oral mucosa (principal)
CPT/HCPCS: 99499

== ENCOUNTER 2022-11-18 07:54 | Outpatient (REF) | payer MEDICARE, SELFPAY ==
[2022-11-18 11:45] LABS: Hematocrit 39.4 % (37.0-47.0); Hemoglobin 12.7 g/dl (12.0-16.0); Mean Corpuscular HGB Conc 32.2 g/dl (31.0-35.0); Mean Corpuscular Hemoglobin 32.9 pg (27.0-33.0); Mean Corpuscular Volume 102.1 fL (80.0-98.0); Mean Platelet Volume 11.6 fL (9.4-12.3); Platelet Count 246 X10*3/uL (160-400); Red Blood Count 3.86 X10*6/uL (4.20-5.50); Red Cell Distribution Width 12.7 % (11.0-16.0); White Blood Count 6.1 X10*3/uL (4.8-10.8)
[2022-11-18 12:14] LABS: Anion Gap 11 (12-20); Blood Urea Nitrogen 12 mg/dL (9-16); Calcium 9.5 mg/dL (8.4-10.2); Carbon Dioxide 29 mmol/L (22-29); Chloride 105 mmol/L (96-108); Estimated Glomerular Filt Rate > 60; Glucose Random 96 mg/dL (60-115); Potassium 4.2 mmol/L (3.3-5.1); Sodium 141 mmol/L (135-145)
== END 2022-11-18 07:55 | disposition home or self-care (01) ==
LOC: HO.HMGCLDS 07:54
PROVIDERS: PCP Internal Medicine; Visit Provider Internal Medicine
DX: J34.0 Abscess, furuncle and carbuncle of nose (principal)
CPT/HCPCS: 36415; 80048; 85027

== ENCOUNTER 2022-12-03 10:13 | Outpatient (REF) | payer MEDICARE, SELFPAY ==
--- NOTE | ~2022-12-03 | CT_ITS ---
EXAMINATION: CT FACIAL BONES WITH CONTRAST CLINICAL INFORMATION: Abscess versus furuncle and carbuncle of nose. COMPARISON: None available. TECHNIQUE: Multidetector helical imaging acquired in the axial plane with generation of reformatted acquisitions. The patient received 85 mL of Omnipaque 350 intravenously for the study. This CT examination was performed using dose optimization techniques as appropriate, variously including the following: *Automated exposure control *Adjustment of mA and/or kV according to patient size (this includes techniques or standardized protocols for targeted exams where dose is matched to indication/reason for exam; i.e. extremities or head) *Use of iterative reconstruction technique DLP: 118 mGy-cm FINDINGS: There is focal soft tissue thickening at the level of the upper philtrum and base of the nasal columella. Periapical lucency is noted around the right central maxillary incisor, status post a previous root canal. There is focal loss of bone anteriorly at this site. No discrete soft tissue fluid collection is seen. The orbits are normal. There is trace mucosal thickening in the dominant right sphenoid sinus cavity. The remaining paranasal sinuses are fairly well aerated. The middle ear cavities and mastoid air cells are clear. The imaged portions of the brain demonstrate no acute abnormality. The parotid and submandibular glands appear normal. The imaged oral cavity, pharyngeal mucosal space, and supraglottic larynx are unremarkable. No upper cervical adenopathy is visible. The carotid sheath vasculature opacifies normally. Hypertrophic facet arthropathy visible in the cervical spine. The temporomandibular joints are normal. CT/CT facial bones w IV con IMPRESSION: Focal soft tissue thickening at the level of the upper philtrum and at the base of the nasal columella in the midline. Correlate with findings on direct visual inspection. No drainable soft tissue fluid collection. Adjacent periapical disease associated with the right central maxillary molar, status post a previous root canal. The possibility of a failed root canal cannot be ruled out with an associated adjacent soft tissue inflammatory process as described.
[2022-12-03] MEDS: iohexoL 350 MG/ML 100 ML INFUS..BTL IV (11:00)
== END 2022-12-03 10:14 | disposition home or self-care (01) ==
LOC: HO.CT 10:13
PROVIDERS: PCP Internal Medicine; Visit Provider Internal Medicine
DX: J34.0 Abscess, furuncle and carbuncle of nose (principal)
CPT/HCPCS: 70487; Q9967

== ENCOUNTER 2023-03-20 13:56 | Outpatient (AMB) | payer MEDICARE, SELFPAY ==
--- NOTE | 2023-03-20 14:21 | MHC.PC.OV ---
Vital Signs 03/20/23 14:22 Height 5 ft 5 in Weight 119 lb 6 oz BMI 19.9 BP 128/62 Blood Pressure Location Lt brachial Position Sitting Pulse 79 Pulse Source Pulse Oximeter Pulse Oximetry (%) 99 Oxygen Delivery Method Room Air Intake Visit Reasons: 6mth f/u Intake Note: Patient is here to follow up on HTN, Hypothyroidism. Arbitrator Required: No Associate Manager: Not Required per policy Accompanied by: Self / Same As Patient Allergies meperidine [From Demerol] Allergy (Intermediate, Verified 03/31/23 06:31) Rash Sulfa (Sulfonamide Antibiotics) [SULFA (SULFONAMIDE ANTIBIOTICS)] Allergy (Unknown, Verified 03/20/23 14:22) RASH, HIVES, swelling, hives,itching Medication List - Last Reconciled 03/31/23 by Sandip Tinoco MD amlodipine 5 mg PO DAILY cholecalciferol (vitamin D3) 50 mcg PO DAILY levothyroxine 50 mcg PO DAILY lorazepam 0.5 mg PO BEDTIME PRN simvastatin 10 mg PO BEDTIME simvastatin 10 mg (1/2 x 20 mg) PO BEDTIME Tobacco use date assessed: 03/20/23 Fall risk assessment: No Falls in past year Last assessed Fall Risk: 03/20/23 Dental Screening Dental Screen Date: 03/20/23 Did you have a dental visit in the last 12 months?: Yes Did you have a dental problem in the last 6 months where you did not have access to dental care?: No Was dental information given to patient?: Patient has dentist HPI 6mth f/u HPI Details 77-year-old female presents to the office to discuss her chronic medical conditions. Since her last office visit, patient did not keep any surgical appointment regarding the granulation tissue around the nose. Her has been sick and she has been taking care of him. She would canceled all her medical appointments. Patient also has some anxiety due to her 's illness. The granulation tissue below the nose has not healed. She does have some discharge occasionally. She is compliant with other medications and is able to do all activities of daily living. [facility] Medical History Acquired hypothyroidism Benign essential HTN Surgical History History of tooth extraction History of biopsy History of inguinal hernia repair History of parathyroidectomy Family History Father S/P CABG x 4 Mother Hyperlipidemia Hypertension Brother Atherosclerosis Social History Housing: House Alcohol intake: never Patient Tobacco Use Status: Never used Tobacco e-Cigarette/Vaping Use: Never Used Second Hand Smoke Exposure: No service: No Current occupational status: retired Cognitive needs: No Hearing needs: No Vision needs: Yes (Glasses) Questionnaire Thrive Questionnaire Date Thrive assessed: 09/19/22 GIULIANA-7 AMB Questionnaire GIULIANA-7 Date GIULIANA - 7 assessed: 09/19/22 Source: Developed by Drs. Lamont Nieves, Sole Brito, Sony Kimball and colleagues, with an educational do from [employer]. Physical exam (Primary Care) Vital Signs: Last Vital Signs Pulse 79 03/20/23 14:22 BP 128/62 03/20/23 14:22 Pulse Ox 99 03/20/23 14:22 Oxygen Delivery Method Room Air 03/20/23 14:22 BMI result Body Mass Index 19.9 Tobacco/Smoking Status: Tobacco use Status Tobacco use date assessed 03/20/23 03/20/23 14:28 Patient Tobacco Use Status Never used Tobacco 03/20/23 14:28 e-Cigarette/Vaping Use Never Used 03/20/23 14:28 Thrive Assessment: Date of Thrive Assessment Date Thrive assessed 09/19/22 03/20/23 14:28 Const General: cooperative and healthy appearing Nutritional Appearance: well nourished Orientation/consciousness: patient oriented x3 Limitations: no limitations HENMT Head: Yes normal to inspection Eyes General: appearance normal, both eyes and all related structures Neck Neck: Yes normal visual inspection Chest Chest palpation & inspection: normal palpation of entire chest wall Resp Effort & Inspection: normal respiratory effort Skin Other: Nose: Philtrum: Tiny weeping wound. Neuro General: patient oriented x3 Assessment and Plan Assessment & Plan (1) Ulcer of nose: Code(s): J34.0 - Abscess, furuncle and carbuncle of nose Plan: A surgical appointment has been requested again. (2) Acquired hypothyroidism: Code(s): E03.9 - Hypothyroidism, unspecified Plan: Patient is euthyroid. (3) Generalized anxiety disorder: Code(s): F41.1 - Generalized anxiety disorder Plan: Counseling for 20 minutes done. Patient is not willing to get any therapy. Coding Level of Care Code Est Pt Level 4 (50498) Diagnoses Ulcer of nose J34.0 Acquired hypothyroidism E03.9 Generalized anxiety disorder F41.1
[2023-03-20 14:22] VITALS: BP 128/62; PULSE 79; O2SAT 99; BMI 19.9
== END 2023-03-20 14:54 | disposition home or self-care (01) ==
PROVIDERS: PCP Internal Medicine; Visit Provider Internal Medicine
DX: J34.0 Abscess, furuncle and carbuncle of nose (principal); E03.9 Hypothyroidism, unspecified; F41.1 Generalized anxiety disorder
CPT/HCPCS: 99214

== ENCOUNTER 2023-06-02 14:49 | Outpatient (AMB) | payer MEDICARE, SELFPAY ==
[2023-06-02 15:08] VITALS: BP 160/70; PULSE 77; O2SAT 99; BMI 20.5
--- NOTE | 2023-06-02 15:08 | A.OFFPC_ITS ---
Vital Signs 06/02/23 15:08 06/02/23 16:04 Height 5 ft 5 in Weight 123 lb BMI 20.5 BP 160/70 H 140/90 H Blood Pressure Location Lt brachial Lt brachial Position Sitting Sitting Pulse 77 Pulse Source Pulse Oximeter Pulse Oximetry (%) 99 Oxygen Delivery Method Room Air Intake Visit Reasons: Cataract L eye 06/09/23, R eye06/30/23 Stacker: Not Required per policy Accompanied by: Self / Same As Patient Allergies meperidine [From Demerol] Allergy (Intermediate, Verified 06/03/23 14:30) NAUSEA/VOMITING Sulfa (Sulfonamide Antibiotics) [SULFA (SULFONAMIDE ANTIBIOTICS)] Allergy (Intermediate, Verified 06/03/23 14:28) RASH, HIVES, SWELLING Medication List - Last Reconciled 06/02/23 by Hector Helton MD amlodipine 5 mg PO DAILY cholecalciferol (vitamin D3) 50 mcg PO DAILY levothyroxine 50 mcg PO DAILY lorazepam 0.5 mg PO BEDTIME PRN simvastatin 10 mg (1/2 x 20 mg) PO BEDTIME Tobacco use date assessed: 06/02/23 Fall risk assessment: No Falls in past year Last assessed Fall Risk: 06/02/23 Dental Screening Dental Screen Date: 06/02/23 Did you have a dental visit in the last 12 months?: Yes Did you have a dental problem in the last 6 months where you did not have access to dental care?: No Was dental information given to patient?: Patient has dentist HPI Cataract L eye 06/09/23, R eye06/30/23 HPI Details Patient comes in today at the request of Dr. Joseph Cruz for a preoperative medical examination for clearance for surgery She is scheduled for cataract extraction/phacoemulsification with IOL of the left eye under MAC on 06/09/2023, followed by the same procedure on the right eye a couple of weeks later on 06/30/2023 Patient states that she feels okay other than having some anxiety about coming in to see a doctor she did not know She denies any headaches or dizziness Denies any chest pains, no SOB No nausea/vomiting, no abdominal pain No change in bowel habits noted She is also requesting for a Cologuard test kit to be ordered for her States that she sees Dr. Munoz for her GI follow up and instead of a regular follow up colonoscopy, would like to just get a Cologuard test for now [facility] Medical History (Updated 06/03/23 @ 19:39 by Hector Helton MD) Vitamin D deficiency Pure hypercholesterolemia PONV (postoperative nausea and vomiting) Arthritis Elevated cholesterol Acquired hypothyroidism Benign essential HTN Surgical History (Updated 06/03/23 @ 14:29 by Erica Patiño RN) H/O colonoscopy History of tooth extraction History of biopsy History of inguinal hernia repair History of parathyroidectomy Family History Father S/P CABG x 4 Mother Hyperlipidemia Hypertension Brother Atherosclerosis Social History Housing: House Are you a primary critical care technician to a significant other at home: No Do you presently have visiting nurse or other home services: No Alcohol intake: never Patient Tobacco Use Status: Never used Tobacco e-Cigarette/Vaping Use: Never Used Second Hand Smoke Exposure: No Have you been hit, kicked, punched, or otherwise hurt by someone within the past year? If so, by whom?: No Are you DNR?: Yes Advance Directives on File: No Recently lost weight without trying: No Nutrition Risks: Surgical patient >75years Poor oral hygiene: No (extracted teeth) service: No Current occupational status: retired Cognitive needs: No Hearing needs: No Vision needs: Yes (Glasses) Questionnaire PHQ-9 Over the last 2 weeks, how often have you been bothered by any of the following problems? 1. Little interest or pleasure in doing things: not at all 2. Feeling down, depressed, or hopeless: not at all 3. Trouble falling or staying asleep, or sleeping too much: not at all 4. Feeling tired or having little energy: not at all 5. Poor appetite or overeating: not at all 6. Feeling bad about yourself - or that you are a failure or have let yourself or your family down: not at all 7. Trouble concentrating on things, such as reading the newspaper or watching television: not at all 8. Moving or speaking so slowly that other people could have noticed. Or the opposite - being so fidgety or restless that you have been moving around a lot more than usual: not at all 9. Thoughts that you would be better off or of hurting yourself in some way: not at all Total score: 0 Depression Screening Interpretation: Negative Depression Screening Done: Yes 28779 - PHQ-9 Billing: Yes Source: Developed by Drs. Lamont Nieves, Sole Brito, Sony Kimball and colleagues, with an educational do from [employer]. Thrive Questionnaire Date Thrive assessed: 06/02/23 I am a: Patient What is your living situation today?: I have a steady place to live Within the past 12 months, did the food you bought not last and you didn't have the money to get more?: Never true Within the past 12 months, did you worry whether your food would run out before you got money to buy more?: Never true Do you have trouble paying for medicines?: No Do you have trouble getting transportation to medical appointments?: No Do you have trouble paying your heating and electricity bill?: No Do you have trouble taking care of your child, family member or friend?: No Do you have trouble with day-to-day activities such as bathing, preparing meals, shopping, managing finances, etc.?: No Are you currently unemployed and looking for a job?: No Are you interested in more education?: No Please select the resources that you would like help with: None Currently or been in a relationship where the following occur: no concerns reported THRIVE Score: 0 AUDIT C Alcohol Use Questionnaire (AUDIT-C) 1. How often do you have a drink containing alcohol?: Never Total Score: 0 Score Reviewed/Action Taken: Yes GIULIANA-7 AMB Questionnaire GIULIANA-7 Date GIULIANA - 7 assessed: 06/02/23 Feeling nervous, anxious, or on edge: 3 = Nearly every day Not being able to stop or control worryin = Not at all Worrying too much about different things: 2 = More than half the days Trouble relaxin = More than half the days Being so restless that it is hard to sit still: 0 = Not at all Becoming easily annoyed or irritable: 2 = More than half the days Feeling afraid as if something awful might happen: 2 = More than half the days Total GIULIANA-7 score (0-4 normal; 5-9 mild; 10-14 moderate; 15-21 severe): 11 Source: Developed by Drs. Lamont Nieves, Sole Brito, Sony Kimball and colleagues, with an educational do from [employer]. Review of Systems Const Denies chills, Denies fatigue, Denies fever(s) and Denies headache(s) Eyes Reports blurry vision ENT Denies dysphagia, Denies dizziness, Denies otalgia, Denies headache(s), Denies neck pain, Denies odynophagia and Denies sore throat Card Denies chest pain, Denies palpitations and Denies dyspnea Resp Denies cough and Denies dyspnea GI Denies abdominal pain, Denies constipation, Denies dysphagia, Denies heartburn, Denies diarrhea, Denies nausea, Denies odynophagia and Denies vomiting Denies difficulty voiding, Denies nocturia and Denies dysuria Musc Denies neck pain Skin/Breast Denies rash Neuro Denies dizziness and Denies headache(s) Endo Denies fatigue and Denies palpitations Physical exam (Primary Care) Vital Signs: Last Vital Signs Pulse 77 06/02/23 15:08 BP 140/90 H 06/02/23 16:04 Pulse Ox 99 06/02/23 15:08 Oxygen Delivery Method Room Air 06/02/23 15:08 BMI result Body Mass Index 20.5 Tobacco/Smoking Status: Tobacco use Status Tobacco use date assessed 06/02/23 06/02/23 15:10 Patient Tobacco Use Status Never used Tobacco 06/02/23 15:10 e-Cigarette/Vaping Use Never Used 06/02/23 15:10 PHQ-9: PHQ-9 Score PHQ-9: Total score 0 06/02/23 16:02 Depression Screening Interpretation: Negative Thrive Assessment: Date of Thrive Assessment Date Thrive assessed 06/02/23 06/02/23 15:10 Currently or been in a relationship where the following occur: no concerns reported Const General: no acute distress and alert HENMT Throat: Yes posterior oropharynx normal and Yes tonsils normal (no TP congestion) Neck Neck: Yes no lymphadenopathy and Yes supple Thyroid: Thyroid normal Resp Auscultation: clear to auscultation bilaterally, no rales and no wheezes Cardio Rate: regular rate Rhythm: regular rhythm Heart sounds: no murmurs GI Palpation (GI): Soft to palpation and nontender Auscultation: normal bowel sounds General: Yes no CVA tenderness Back/Spine/Pelvis Back: no CVA tenderness Thoracic/Lumbar Spine: thoracic and lumbar spine normal to inspection Skin Rashes: no rashes Neuro Cognition (Neuro): normal cognition Extrem General: Yes no clubbing, cyanosis or edema Assessment and Plan Assessment & Plan (1) Preoperative examination: Code(s): Z01.818 - Encounter for other preprocedural examination Plan: Patient presents with acceptable risks for planned low cardiac risk procedure(s) (2) Cataracts, bilateral: Code(s): H26.9 - Unspecified cataract Qualifiers: Cataract type: unspecified Qualified Code(s): H26.9 - Unspecified cataract Plan: She is scheduled for cataract extraction/phacoemulsification with IOL of the left eye under MAC on 06/09/2023, followed by the same procedure on the right eye a couple of weeks later on 06/30/[address] Cruz (3) Benign essential HTN: Code(s): I10 - Essential (primary) hypertension Plan: Reinforced low sodium diet - goal is systolic BP of at least 130 to 140 mm or less Continue Amlodipine 5 mg QD Her blood pressure was high at 160/70 mm when checked initially during her visit today; repeat blood pressure during the latter part of her exam still showed BP to be elevated at 140/90 mm Patient reports that her systolic BP at home usually ranges from 120 to 140 mm consistently and that her anxiety plays a big part in how her blood pressure behaves (4) Pure hypercholesterolemia: Code(s): E78.00 - Pure hypercholesterolemia, unspecified Plan: Reinforced low cholesterol diet Continue Simvastatin 10 mg QD (5) Acquired hypothyroidism: Code(s): E03.9 - Hypothyroidism, unspecified Plan: Continue Levothyroxine 50 mcg QD (6) Vitamin D deficiency: Code(s): E55.9 - Vitamin D deficiency, unspecified Plan: Continue Vitamin D3 2000 units QD (7) Generalized anxiety disorder: Code(s): F41.1 - Generalized anxiety disorder Plan: Continue Lorazepam 0.5 mg Q HS PRN (8) Colon cancer screening: Code(s): Z12.11 - Encounter for screening for malignant neoplasm of colon Plan: Per request, will order Cologuard testing for her She sees Dr. Munoz for GI follow up and states that Dr. Munoz is aware of her preference to do Cologuard testing for now Plan Patient is currently medically optimized and does not appear to have any contraindications to undergo bilateral cataract surgeries as planned - she is medically cleared for surgery To return as scheduled in September 2023 for her annual physical examination with her PCP Orders: Referrals Cologuard Test Z12.11 - Encounter for screening for malignant neoplasm of colon, Z12.12 - Encounter for screening for malignant neoplasm of rectum Coding Level of Care Code Est Pt Level 4 (73506) Diagnoses Preoperative examination Z01.818 Cataract of both eyes, unspecified cataract type H26.9 Cataract type: unspecified Benign essential HTN I10 Pure hypercholesterolemia E78.00 Acquired hypothyroidism E03.9 Vitamin D deficiency E55.9 Generalized anxiety disorder F41.1 Colon cancer screening Z12.11
[2023-06-02 16:04] VITALS: BP 140/90
== END 2023-06-02 16:09 | disposition home or self-care (01) ==
PROVIDERS: PCP Internal Medicine; Visit Provider Internal Medicine
DX: Z01.818 Encounter for other preprocedural examination (principal); H26.9 Unspecified cataract; I10 Essential (primary) hypertension; E78.00 Pure hypercholesterolemia, unspecified; E03.9 Hypothyroidism, unspecified; E55.9 Vitamin D deficiency, unspecified; F41.1 Generalized anxiety disorder; Z12.11 Encounter for screening for malignant neoplasm of colon
CPT/HCPCS: 99214

== ENCOUNTER 2023-06-09 11:21 | Day surgery (SDC) | payer MEDICARE, SELFPAY ==
[2023-06-03 14:43] VITALS: BMI 20.5
[2023-06-09 14:33] VITALS: BP 174/79; PULSE 80; RESP 16; TEMP 37.3; O2SAT 98
[2023-06-09] MEDS: Tetracaine HCl/PF 0.5% Oph Sol 4 ML DROPS 1 DROP EYE-LEFT (14:47)
[2023-06-09] MEDS: Tropicamide 1 % Ophth Sol 3 ML BTL 1 DROP EYE-LEFT ×3 (14:50→14:57)
[2023-06-09] MEDS: Ketorolac Tromethamine 0.5% Op 5 ML DROPS 1 DROP EYE-LEFT ×3 (14:51→14:58)
[2023-06-09] MEDS: Phenylephrine HCL 2.5% Oph SoL 2 ML BOTTLE 1 DROP EYE-LEFT ×3 (14:52→14:59)
[2023-06-09] MEDS: Lactated Ringers 500 ML 50 ML IV (14:54)
--- NOTE | 2023-06-09 15:13 | P.CONAN_ITS ---
HPI - Anesthesia Eval Consult details Narrative: 78 yo female patient for Left cataract extraction, IOL insertion PMFSH Active Problems Active Problems: All Active Problems (Updated 06/09/23 @ 15:10 by Estrellita Amaya MD) Vitamin D deficiency (Acute) Pure hypercholesterolemia (Acute) Cataracts, bilateral (Acute) Preoperative examination (Acute) Ulcer of nose (Acute) Generalized anxiety disorder (Acute) Annual physical exam (Acute) Acquired hypothyroidism (Acute) Benign essential HTN (Acute) Past Medical History Medical History Vitamin D deficiency Pure hypercholesterolemia PONV (postoperative nausea and vomiting) Arthritis Elevated cholesterol Acquired hypothyroidism Benign essential HTN Family History Family History Father S/P CABG x 4 Mother Hyperlipidemia Hypertension Brother Atherosclerosis Family history of problems with anesthesia: No Surgical History Surgical History H/O colonoscopy History of tooth extraction History of biopsy History of inguinal hernia repair History of parathyroidectomy History of Problems with Anesthesia: Yes (PONV) Social History Social History Housing: House Are you a primary patient care coordinator to a significant other at home: No Do you presently have visiting nurse or other home services: No Alcohol intake: never Patient Tobacco Use Status: Never used Tobacco e-Cigarette/Vaping Use: Never Used Second Hand Smoke Exposure: No Have you been hit, kicked, punched, or otherwise hurt by someone within the past year? If so, by whom?: No Are you DNR?: Yes Advance Directives: No Advance Directives Information Provided: Yes Advance Directives on File: No Recently lost weight without trying: No Nutrition Risks: Surgical patient >75years Poor oral hygiene: No (extracted teeth) service: No Current occupational status: retired Cognitive needs: No Hearing needs: No Vision needs: Yes (Glasses) Meds Allergies Allergy/AdvReac Type Severity Reaction Status Date / Time meperidine [From Demerol] Allergy Intermediate NAUSEA/VOMI Verified 06/09/23 14:31 TING Sulfa (Sulfonamide Allergy Intermediate RASH, Verified 06/09/23 14:31 Antibiotics) HIVES, [SULFA (SULFONAMIDE SWELLING ANTIBIOTICS)] Active Medications: Current Medications Lactated Ringer's (Lr) 500 mls @ 50 mls/hr IV .Q10H DENISE Stop: 06/09/23 18:59 Last Admin: 06/09/23 14:54 Dose: 50 mls/hr Povidone Iodine (Povidone Iodine 5 % Ophth Soln 30 Ml Bottle) 1 appl EYE-LEFT PREOP PRN PRN Reason: Pre-Op Surgical Implant Prophy Home Medications Medication Instructions Recorded Confirmed Last Taken Type cholecalciferol (vitamin D3) 50 50 mcg PO DAILY 02/08/20 06/03/23 Unknown History mcg (2,000 unit) tablet amlodipine 5 mg tablet 5 mg PO QPM 06/03/23 06/03/23 Unknown History levothyroxine 50 mcg tablet 50 mcg PO QAM 06/03/23 06/03/23 06/09/23 08:00 History simvastatin 20 mg tablet 10 mg PO QPM 06/03/23 06/03/23 Unknown History Exam Height,Weight and Vital Signs: Height 5 ft 5 in Weight 55.792 kg Last Vital Signs Temp 99.2 F 06/09/23 14:33 Pulse 80 06/09/23 14:33 Resp 16 06/09/23 14:33 BP 174/79 H 06/09/23 14:33 Pulse Ox 98 06/09/23 14:33 O2 Del Method Room Air 06/09/23 14:33 Airway Mallampati Class: II TM Dist: >3cm Neck ROM: Full Loose/Missing/Broken Teeth: Yes (Some missing- extracted. Denies broken or loose teeth) Heart: RRR Lungs: CTAB Assessment and Plan Assessment Anesthesia Assessment: Anesthesia Plan Discussed and Chart Reviewed Final Anesthetic Review Family History of Problems with Anesthesia: No History of Problems with Anesthesia: Yes (PONV) NPO: Yes ASA Class: II Final Preanesthetic Review: No Changes in Pt Med Stat, Meds/Allgs Chart Reviewed, Consent Obtained/Reviewed, Anes Risks/Benef Reviewed and DNR Form (If Appl.) Patient Risk: Low Procedure Risk: Low Assessment/Block/Sedation in SS: Assess/Block/Sedation-SS Anesthetic Plan Anesthetic Plan: MAC: Disposition: Standard PACU
--- NOTE | 2023-06-09 15:26 | MHC.SHP ---
Pre-Procedural Eval Section A - 24 Hr Update-Section A only Date of Service: 06/09/23 The patient is an INPATIENT: No Changes since office visit: No Cold of Flu in the past 2 weeks, No New Medical Problems, No Changes in Medication and No Patient answered all questions The patient has been examined within 24 hours of the surgical procedure. The History & Physical has been completed within 30 days and I have reviewed it.: Yes Section B - Complete if H&P > 30 days Chief Complaint: Age-related nuclear cataract, left eye Allergies: Allergies Allergy/AdvReac Type Severity Reaction Status Date / Time meperidine [From Demerol] Allergy Intermediate NAUSEA/VOMI Verified 06/09/23 14:31 TING Sulfa (Sulfonamide Allergy Intermediate RASH, Verified 06/09/23 14:31 Antibiotics) HIVES, [SULFA (SULFONAMIDE SWELLING ANTIBIOTICS)] Plan Diagnosis/Plan: Unchanged I have reviewed the history and physical and performed a pertinent physical examination on my patient. No changes have occurred unless specified. Time Spent With Patient Time: Total time managing care of this patient today ____ minutes.
--- NOTE | 2023-06-09 15:28 | HO.PNOPHT ---
Ophthalmology Procedure Procedure Date of Service: 06/09/23 Ophthalmology Viscoelastic: Healon Duet Dual Pack Pro Ophthalmology Lenses: Other (ma60 17.5) Procedure Notes: PREOPERATIVE DIAGNOSIS: Decreased visual acuity left eye secondary to cataract POSTOPERATIVE DIAGNOSIS: Same PROCEDURE: Left cataract extraction with intraocular lens insertion SURGEON: Joseph Cruz M.D. ANESTHESIA: Topical/MAC ESTIMATED BLOOD LOSS: None COMPLICATIONS: None After obtaining informed consent, the patient was brought to the operation room suite and placed in the supine position. After adequate sedation per anesthesia, topical drops of Tetracaine were given to the left eye. The eye was then prepped and draped in the usual sterile fashion. The operating room microscope was then positioned over the operative eye and a lid speculum placed. A paracentesis was created. Viscoelastic was then instilled into the anterior chamber. A three plane incision was then created temporally, utilizing a 2.85 mm keratome. Capsulotomy forceps were then utilized to create a circular tear capsulotomy. Hydrodissection and hydrodelineation were carried out until adequate mobilization of the nucleus occurred. Phacoemulsification was then utilized to remove the dense central nucleus followed by removal of the cortical material utilizing the automated aspiration irrigation unit. Viscoat elastic was instilled into the posterior capsular bag followed by placement of a posterior chamber intraocular lens without difficulty. The residual Viscoat elastic was then removed utilizing the automated IA machine. The wound was check and found to be watertight. The patient tolerated the procedure well and the lid speculum was removed. Intracameral injection of Vigamox 0.1 mL followed by a subtenon injection of Kenalog-40 0.2 mL were administered. The patient will be seen in the a.m.
[2023-06-09 16:18] VITALS: BP 152/66; PULSE 77; RESP 18; TEMP 37.2; O2SAT 98
[2023-06-09 16:33] VITALS: BP 139/70; PULSE 80; RESP 20; TEMP 37; O2SAT 99
== END 2023-06-09 16:34 | disposition home or self-care (01) ==
PROVIDERS: PCP Internal Medicine; Visit Provider Ophthalmology
PROC: (CPT 66985; principal; 2023-06-09 13:00)
DX: H25.12 Age-related nuclear cataract, left eye (principal); H54.7 Unspecified visual loss; I10 Essential (primary) hypertension; E78.00 Pure hypercholesterolemia, unspecified; E03.9 Hypothyroidism, unspecified; H35.363 Drusen (degenerative) of macula, bilateral; H18.413 Arcus senilis, bilateral; Z79.899 Other long term (current) drug therapy; Z88.2 Allergy status to sulfonamides; Z66 Do not resuscitate; Z88.8 Allergy status to other drugs, medicaments and biological substances
CPT/HCPCS: 66984; J2250; J2405; J3010; J3301; V2630

== ENCOUNTER 2023-06-30 08:02 | Day surgery (SDC) | payer MEDICARE, SELFPAY ==
[2023-06-03 14:46] VITALS: BMI 20.5
--- NOTE | 2023-06-26 13:58 | HO.ANESPROP2 ---
Documented by User: Savanah Quinn NP 06/26/23 13:58 HPI - Anesthesia Eval Consult details Narrative: 78yo F for Right Cataract Extraction IOL Insertion Optimized per PCP Left eye 06/09/23: Midaz 2 PMFSH Active Problems Active Problems: All Active Problems Vitamin D deficiency (Acute) Pure hypercholesterolemia (Acute) Cataracts, bilateral (Acute) Preoperative examination (Acute) Ulcer of nose (Acute) Generalized anxiety disorder (Acute) Annual physical exam (Acute) Acquired hypothyroidism (Acute) Benign essential HTN (Acute) Past Medical History Medical History Vitamin D deficiency Pure hypercholesterolemia PONV (postoperative nausea and vomiting) Arthritis Elevated cholesterol Acquired hypothyroidism Benign essential HTN Family History Family History Father S/P CABG x 4 Mother Hyperlipidemia Hypertension Brother Atherosclerosis Family history of problems with anesthesia: No Surgical History Surgical History H/O colonoscopy History of tooth extraction History of biopsy History of inguinal hernia repair History of parathyroidectomy History of Problems with Anesthesia: Yes (PONV) Social History Social History Housing: House Are you a primary hemodialysis patient care specialist to a significant other at home: No Do you presently have visiting nurse or other home services: No Alcohol intake: never Patient Tobacco Use Status: Never used Tobacco e-Cigarette/Vaping Use: Never Used Second Hand Smoke Exposure: No Have you been hit, kicked, punched, or otherwise hurt by someone within the past year? If so, by whom?: No Are you DNR?: Yes Advance Directives: No Advance Directives Information Provided: Yes Advance Directives on File: No Recently lost weight without trying: No Eating poorly because of decreased appetite: No Nutrition Risks: Surgical patient >75years Poor oral hygiene: No (extracted teeth) service: No Current occupational status: retired Cognitive needs: No Hearing needs: No Vision needs: Yes (Glasses) Meds Allergies Allergy/AdvReac Type Severity Reaction Status Date / Time meperidine [From Demerol] Allergy Intermediate NAUSEA/VOMI Verified 06/09/23 14:31 TING Sulfa (Sulfonamide Allergy Intermediate RASH, Verified 06/09/23 14:31 Antibiotics) HIVES, [SULFA (SULFONAMIDE SWELLING ANTIBIOTICS)] Home Medications ?Medication ?Instructions ?Recorded ?Confirmed ?Last Taken ?Type cholecalciferol (vitamin D3) 50 50 mcg PO DAILY 02/08/20 06/03/23 Unknown History mcg (2,000 unit) tablet amlodipine 5 mg tablet 5 mg PO QPM 06/03/23 06/03/23 Unknown History levothyroxine 50 mcg tablet 50 mcg PO QAM 06/03/23 06/03/23 06/09/23 08:00 History simvastatin 20 mg tablet 10 mg PO QPM 06/03/23 06/03/23 Unknown History Exam Height,Weight and Vital Signs: Height 5 ft 5 in Weight 55.792 kg Assessment and Plan Assessment Anesthesia Assessment: Chart Reviewed Final Anesthetic Review Family History of Problems with Anesthesia: No History of Problems with Anesthesia: Yes (PONV) Documented by User: Juani Spear MD 06/30/23 09:54 PMFSH Past Medical History Medical History Vitamin D deficiency Pure hypercholesterolemia PONV (postoperative nausea and vomiting) Arthritis Elevated cholesterol Acquired hypothyroidism Benign essential HTN Family History Family History Father S/P CABG x 4 Mother Hyperlipidemia Hypertension Brother Atherosclerosis Surgical History Surgical History H/O colonoscopy History of tooth extraction History of biopsy History of inguinal hernia repair History of parathyroidectomy Social History Social History Housing: House Are you a primary hemodialysis patient care specialist to a significant other at home: No Do you presently have visiting nurse or other home services: No Alcohol intake: never Patient Tobacco Use Status: Never used Tobacco e-Cigarette/Vaping Use: Never Used Second Hand Smoke Exposure: No Have you been hit, kicked, punched, or otherwise hurt by someone within the past year? If so, by whom?: No Are you DNR?: Yes Advance Directives: No Advance Directives Information Provided: Yes Advance Directives on File: No Recently lost weight without trying: No Eating poorly because of decreased appetite: No Nutrition Risks: Surgical patient >75years Poor oral hygiene: No (extracted teeth) service: No Current occupational status: retired Cognitive needs: No Hearing needs: No Vision needs: Yes (Glasses) Meds Allergies Allergy/AdvReac Type Severity Reaction Status Date / Time meperidine [From Demerol] Allergy Intermediate NAUSEA/VOMI Verified 06/09/23 14:31 TING Sulfa (Sulfonamide Allergy Intermediate RASH, Verified 06/09/23 14:31 Antibiotics) HIVES, [SULFA (SULFONAMIDE SWELLING ANTIBIOTICS)] Home Medications ?Medication ?Instructions ?Recorded ?Confirmed ?Last Taken ?Type cholecalciferol (vitamin D3) 50 50 mcg PO DAILY 02/08/20 06/03/23 Unknown History mcg (2,000 unit) tablet amlodipine 5 mg tablet 5 mg PO QPM 06/03/23 06/03/23 Unknown History levothyroxine 50 mcg tablet 50 mcg PO QAM 06/03/23 06/03/23 06/09/23 08:00 History simvastatin 20 mg tablet 10 mg PO QPM 06/03/23 06/03/23 Unknown History Exam Airway Mallampati Class: II TM Dist: >3cm Neck ROM: Full Heart: rrr Lungs: cta Assessment and Plan Assessment Anesthesia Assessment: Anesthesia Plan Discussed Final Anesthetic Review NPO: Yes ASA Class: II Final Preanesthetic Review: No Changes in Pt Med Stat, Meds/Allgs Chart Reviewed, Consent Obtained/Reviewed and Anes Risks/Benef Reviewed Patient Risk: Intermediate Procedure Risk: Low Anesthetic Plan Anesthetic Plan: MAC: Disposition: Standard PACU
[2023-06-30] MEDS: Tetracaine HCl/PF 0.5% Oph Sol 4 ML DROPS 1 DROP EYE-RIGHT (09:36)
[2023-06-30] MEDS: Lactated Ringers 500 ML 50 ML IV (09:36)
[2023-06-30] MEDS: Cyclopentolate 1 % Ophth Sol 2 ML DRPBTL 1 DROP EYE-RIGHT ×3 (09:37→10:01)
[2023-06-30] MEDS: Tropicamide 1 % Ophth Sol 3 ML BTL 1 DROP EYE-RIGHT ×3 (09:40→10:04)
[2023-06-30] MEDS: Ketorolac Tromethamine 0.5% Op 5 ML DROPS 1 DROP EYE-RIGHT ×3 (09:43→10:07)
[2023-06-30] MEDS: Phenylephrine HCL 2.5% Oph SoL 2 ML BOTTLE 1 DROP EYE-RIGHT ×3 (09:46→10:10)
[2023-06-30 10:00] VITALS: BP 167/52; PULSE 74; RESP 16; TEMP 36.8; O2SAT 100; BMI 20.8
--- NOTE | 2023-06-30 11:21 | P.PCNO_ITS ---
Ophthalmology Procedure Procedure Date of Service: 06/30/23 Ophthalmology Viscoelastic: Healon Duet Dual Pack Pro Ophthalmology Lenses: IOL Acrysof MP - MA60AC (18) Procedure Notes: PREOPERATIVE DIAGNOSIS: Decreased visual acuity right eye secondary to cataract POSTOPERATIVE DIAGNOSIS: Same PROCEDURE: Right cataract extraction with intraocular lens insertion SURGEON: Joseph Cruz M.D. ANESTHESIA: Topical/MAC ESTIMATED BLOOD LOSS: None COMPLICATIONS: None After obtaining informed consent, the patient was brought to the operating room suite and placed in the supine position. After adequate sedation per anesthesia, topical drops of Tetracaine were given to the right eye. The eye was then prepped and draped in the usual sterile fashion. The operating room microscope was then positioned over the operative eye and a lid speculum placed. A paracentesis was created. Viscoelastic was then instilled into the anterior chamber. A three plane incision was then created temporally, utilizing a 2.85 mm keratome. Capsulotomy forceps were then utilized to create a circular tear capsulotomy. Hydrodissection and hydrodelineation were carried out until adequate mobilization of the nucleus occurred. Phacoemulsification was then utilized to remove the dense central nucl eus followed by removal of the cortical material utilizing the automated aspiration irrigation unit. Viscoelastic was instilled into the posterior capsular bag followed by placement of a posterior chamber intraocular lens without difficulty. The residual Viscoelastic was then removed utilizing the automated IA machine. The wound was checked and found to be watertight. The patient tolerated the procedure well and the lid speculum was removed. Intracameral injection of Vigamox 0.1 mL followed by a subtenon injection of Kenalog-40 0.2 mL were administered. The patient will be seen in the a.m.
[2023-06-30 11:29] VITALS: BP 123/59; PULSE 74; RESP 18; TEMP 36.2; O2SAT 100
== END 2023-06-30 12:09 | disposition home or self-care (01) ==
PROVIDERS: PCP Internal Medicine; Visit Provider Ophthalmology
PROC: (CPT 66985; principal; 2023-06-30 12:50)
DX: H25.11 Age-related nuclear cataract, right eye (principal); H54.7 Unspecified visual loss; H35.363 Drusen (degenerative) of macula, bilateral; H18.413 Arcus senilis, bilateral; I10 Essential (primary) hypertension; E78.00 Pure hypercholesterolemia, unspecified; E03.9 Hypothyroidism, unspecified; Z66 Do not resuscitate; Z79.899 Other long term (current) drug therapy; Z88.2 Allergy status to sulfonamides; Z88.5 Allergy status to narcotic agent
CPT/HCPCS: 66984; J2250; J3010; J3301; V2630

== ENCOUNTER 2023-08-19 12:43 | Outpatient (AMB) | payer MEDICARE, SELFPAY ==
[2023-08-19 12:55] VITALS: BP 178/75; PULSE 83; BMI 20.1
--- NOTE | 2023-08-19 12:55 | MHC.OFFVIS ---
Vital Signs 08/19/23 12:55 Height 5 ft 5 in Weight 121 lb BMI 20.1 BP 178/75 H Blood Pressure Location Rt brachial Position Sitting Pulse 83 Intake Visit Reasons: Non healing lesion~ nose Intake Note: Patient referred by PCP Dr. Tinoco for non healing lesion on nose. Present for 10+ yrs. Was seen by histology technician and lesion has been biopsied X3 @ [facility]. Used abx oint, fiordaliza's bees cr, saline w/gauze, vaseline. Patient c/o: lesion keeps growing back, bleeds, oozes. No hx of skin CA. Geothermal Field Technician Required: No Accompanied by: Self / Same As Patient Allergies meperidine [From Demerol] Allergy (Intermediate, Verified 08/19/23 12:59) NAUSEA/VOMITING Sulfa (Sulfonamide Antibiotics) [SULFA (SULFONAMIDE ANTIBIOTICS)] Allergy (Intermediate, Verified 08/19/23 12:59) RASH, HIVES, SWELLING HPI Comments Details: Patient presents for evaluation of a upper lip/below the right nares skin lesion which he has had for many years time. She has had this biopsied on 3 different occasions all of which have been benign. She also had a CT scan of the face there is a question at although unlikely this may be related to an underlying dental issue. Current plan is for the patient to be scheduled in late September per her convenience excision of this upper lip/blow right naris skin lesion. We will also arrange for her to see her dentist to rule out underlying dental etiology. [facility] Medical History Vitamin D deficiency Pure hypercholesterolemia PONV (postoperative nausea and vomiting) Arthritis Elevated cholesterol Acquired hypothyroidism Benign essential HTN Surgical History H/O colonoscopy History of tooth extraction History of biopsy History of inguinal hernia repair History of parathyroidectomy Family History Father S/P CABG x 4 Mother Hyperlipidemia Hypertension Brother Atherosclerosis Social History Housing: House Are you a primary nonfarm animal caretaker to a significant other at home: No Do you presently have visiting nurse or other home services: No Alcohol intake: never Patient Tobacco Use Status: Never used Tobacco e-Cigarette/Vaping Use: Never Used Second Hand Smoke Exposure: No service: No Current occupational status: retired Cognitive needs: No Hearing needs: No Vision needs: Yes (Glasses) Physical Exam Vital Signs: Last Vital Signs Pulse 83 08/19/23 12:55 BP 178/75 H 08/19/23 12:55 BMI result Body Mass Index 20.1 HEENT Other: Patient has a proximally 2 x 1 cm exophytic skin lesion involving the upper lip just below the right naris. No cervical periclavicular adenopathy. Assessment & Plan Assessment & Plan (1) Ulcer of nose: Code(s): J34.0 - Abscess, furuncle and carbuncle of nose Category: Surgical Plan As noted above, and the HPI, current plan is for the patient undergo dental evaluation and and if this is cleared, we will arrange for excision of this upper lip lesion. Risks, benefits, alternatives of procedure reviewed the patient included but not limited to bleeding, infection, recurrence, numbness, pain, scarring and the patient wishes to proceed should it be indicated. All questions answered. Arrangements were made for this as noted above. Coding Level of Care Code New Pt Level 5 (62394) Diagnoses Ulcer of nose J34.0
== END 2023-08-19 13:42 | disposition home or self-care (01) ==
PROVIDERS: PCP Internal Medicine; Referring Provider Internal Medicine; Visit Provider Surgery
DX: J34.0 Abscess, furuncle and carbuncle of nose (principal)
CPT/HCPCS: 99204

== ENCOUNTER → 2023-08-19 12:43 | Outpatient (BNVA) | payer MEDICARE, SELFPAY | PROVIDERS: PCP Internal Medicine; Referring Provider Internal Medicine; Visit Provider Surgery | DX: J34.0 Abscess, furuncle and carbuncle of nose (principal) | CPT/HCPCS: 99202 ==

== ENCOUNTER 2023-10-27 13:20 | Outpatient (AMB) | payer MEDICARE, SELFPAY ==
--- NOTE | 2023-10-27 13:20 | A.OFFPC_ITS ---
Vital Signs 10/27/23 13:21 Height 5 ft 5 in Weight 122 lb BMI 20.3 BP 146/78 H Blood Pressure Location Lt brachial Position Sitting Pulse 88 Pulse Source Pulse Oximeter Pulse Oximetry (%) 98 Oxygen Delivery Method Room Air Intake Visit Reasons: PE Felt Finisher Required: No Allergies meperidine [From Demerol] Allergy (Intermediate, Verified 10/27/23 13:36) NAUSEA/VOMITING Sulfa (Sulfonamide Antibiotics) [SULFA (SULFONAMIDE ANTIBIOTICS)] Allergy (Intermediate, Verified 10/27/23 13:36) RASH, HIVES, SWELLING Medication List - Last Reconciled 10/27/23 by Sandip Tinoco MD amlodipine 5 mg PO QPM cholecalciferol (vitamin D3) 50 mcg PO DAILY levothyroxine 50 mcg PO QAM lorazepam 0.5 mg PO BEDTIME PRN simvastatin 10 mg PO QPM Tobacco use date assessed: 06/02/23 Fall risk assessment: No Falls in past year Last assessed Fall Risk: 10/27/23 Dental Screening Dental Screen Date: 10/27/23 Did you have a dental visit in the last 12 months?: Yes Did you have a dental problem in the last 6 months where you did not have access to dental care?: No Was dental information given to patient?: Patient has dentist HPI PE HPI Details 78-year-old female presents to the offic e requesting an annual physical. Patient was scheduled to have surgery done on the philtrum region of her upper lip. Surgery scheduled in September has been postponed. An oral surgeon opinion has been requested. [facility] Medical History Vitamin D deficiency Pure hypercholesterolemia PONV (postoperative nausea and vomiting) Arthritis Elevated cholesterol Acquired hypothyroidism Benign essential HTN Surgical History Hx of bilateral cataract extraction H/O colonoscopy History of tooth extraction History of biopsy History of inguinal hernia repair History of parathyroidectomy Family History Father S/P CABG x 4 Mother Hyperlipidemia Hypertension Brother Atherosclerosis Social History Housing: House Are you a primary pediatric critical care nurse to a significant other at home: No Do you presently have visiting nurse or other home services: No Alcohol intake: never Patient Tobacco Use Status: Never used Tobacco e-Cigarette/Vaping Use: Never Used Second Hand Smoke Exposure: No service: No Current occupational status: retired Cognitive needs: No Hearing needs: No Vision needs: Yes (Glasses) Questionnaire PHQ-9 Over the last 2 weeks, how often have you been bothered by any of the following problems? 1. Little interest or pleasure in doing things: not at all 2. Feeling down, depressed, or hopeless: not at all 3. Trouble falling or staying asleep, or sleeping too much: not at all 4. Feeling tired or having little energy: not at all 5. Poor appetite or overeating: not at all 6. Feeling bad about yourself - or that you are a failure or have let yourself or your family down: not at all 7. Trouble concentrating on things, such as reading the newspaper or watching television: not at all 8. Moving or speaking so slowly that other people could have noticed. Or the opposite - being so fidgety or restless that you have been moving around a lot more than usual: not at all 9. Thoughts that you would be better off or of hurting yourself in some way: not at all Total score: 0 Depression Screening Interpretation: Positive Depression Screening Follow-up: Existing condition Depression Screening Done: Yes 24743 - PHQ-9 Billing: Yes Source: Developed by Drs. Lamont Nieves, Sole Brito, Sony Kimball and colleagues, with an educational do from [employer]. Thrive Questionnaire Date Thrive assessed: 06/02/23 I am a: Patient What is your living situation today?: I have a steady place to live Within the past 12 months, did the food you bought not last and you didn't have the money to get more?: Never true Within the past 12 months, did you worry whether your food would run out before you got money to buy more?: Never true Do you have trouble paying for medicines?: No Do you have trouble getting transportation to medical appointments?: No Do you have trouble paying your heating and electricity bill?: No Do you have trouble taking care of your child, family member or friend?: No Do you have trouble with day-to-day activities such as bathing, preparing meals, shopping, managing finances, etc.?: No Are you currently unemployed and looking for a job?: No Are you interested in more education?: No Please select the resources that you would like help with: None THRIVE Score: 0 AUDIT C Alcohol Use Questionnaire (AUDIT-C) 1. How often do you have a drink containing alcohol?: Never 3. How often do you have six or more drinks on one occasion?: Never Total Score: 0 Score Reviewed/Action Taken: Yes GIULIANA-7 AMB Questionnaire GIULIANA-7 Date GIULIANA - 7 assessed: 06/02/23 Feeling nervous, anxious, or on edge: 3 = Nearly every day Not being able to stop or control worryin = Not at all Worrying too much about different things: 2 = More than half the days Trouble relaxin = More than half the days Being so restless that it is hard to sit still: 0 = Not at all Becoming easily annoyed or irritable: 2 = More than half the days Feeling afraid as if something awful might happen: 2 = More than half the days Total GIULIANA-7 score (0-4 normal; 5-9 mild; 10-14 moderate; 15-21 severe): 11 Source: Developed by Drs. Lamont Nieves, Sole Brito, Sony Kimball and colleagues, with an educational do from [employer]. Physical exam (Primary Care) Vital Signs: Last Vital Signs Pulse 88 10/27/23 13:21 BP 146/78 H 10/27/23 13:21 Pulse Ox 98 10/27/23 13:21 Oxygen Delivery Method Room Air 10/27/23 13:21 Care Plan Goal for BP management: Blood pressure is in range. Continue medications at same dosage. BMI result Body Mass Index 20.3 Tobacco/Smoking Status: Tobacco use Status Tobacco use date assessed 06/02/23 10/27/23 13:21 Patient Tobacco Use Status Never used Tobacco 10/27/23 13:21 e-Cigarette/Vaping Use Never Used 10/27/23 13:21 PHQ-9: PHQ-9 Score PHQ-9: Total score 0 10/27/23 13:39 Depression Screening Interpretation: Positive Depression Screening Follow-up: Existing condition Thrive Assessment: Date of Thrive Assessment Date Thrive assessed 06/02/23 10/27/23 13:21 Forms completed: Health Care Proxy Time spent: 1-15 minutes, not on file Actual minutes spent: 5 Const General: cooperative and healthy appearing Nutritional Appearance: well nourished Orientation/consciousness: patient oriented x3 Limitations: no limitations HENMT Head: Yes normal to inspection Eyes General: appearance normal, both eyes and all related structures Neck Neck: Yes normal visual inspection Chest Chest palpation & inspection: normal palpation of entire chest wall Resp Effort & Inspection: normal respiratory effort Skin Other: Upper lip:Philtrum:vertical scar. No oozing. Neuro General: patient oriented x3 Assessment and Plan Assessment & Plan (1) Annual physical exam: Code(s): Z00.00 - Encounter for general adult medical examination without abnormal findings Plan: Blood work has been ordered. Will call with the results. Cologuard test reviewed with the patient. Coding Level of Care Code Est Pt Prev Care >65y(71615) Diagnoses Annual physical exam Z00.00 Additional Codes Vital Signs *Quality* - Time spent: 1-15 minutes, not on file ([id number])
[2023-10-27 13:21] VITALS: BP 146/78; PULSE 88; O2SAT 98; BMI 20.3
== END 2023-10-27 14:12 | disposition home or self-care (01) ==
PROVIDERS: PCP Internal Medicine; Visit Provider Internal Medicine
DX: Z00.00 Encounter for general adult medical examination without abnormal findings (principal)
CPT/HCPCS: 1124F; 99397

== ENCOUNTER 2024-07-29 15:04 | Outpatient (AMB) | payer MEDICARE, SELFPAY ==
--- NOTE | 2024-07-29 15:20 | A.OFFPC_ITS ---
Vital Signs 07/29/24 15:28 Height 5 ft 5 in Weight 124 lb BMI 20.6 BP 130/70 Blood Pressure Location Rt brachial Position Sitting Pulse 88 Pulse Source Pulse Oximeter Temp 97.1 F Temp Source Temporal Artery Scan Pulse Oximetry (%) 98 Oxygen Delivery Method Room Air Intake Visit Reasons: 6mth f/u Intake Note: Patient is here to follow up on Hypercholesterolemia, Hypothyroidism, HTN. State Trooper Required: No Division Operations Manager: Present Accompanied by: Spouse Allergies meperidine [From Demerol] Allergy (Intermediate, Verified 07/29/24 15:21) NAUSEA/VOMITING Sulfa (Sulfonamide Antibiotics) [SULFA (SULFONAMIDE ANTIBIOTICS)] Allergy (Intermediate, Verified 07/29/24 15:21) RASH, HIVES, SWELLING Tobacco use date assessed: 07/29/24 Fall risk assessment: No Falls in past year Last assessed Fall Risk: 07/29/24 Dental Screening Dental Screen Date: 07/29/24 Did you have a dental visit in the last 12 months?: Yes Did you have a dental problem in the last 6 months where you did not have access to dental care?: No Was dental information given to patient?: Patient has dentist [facility] Medical History (Updated 07/29/24 @ 15:41 by Sandip Tinoco MD) Osteoarthritis Vitamin D deficiency Pure hypercholesterolemia PONV (postoperative nausea and vomiting) Arthritis Elevated cholesterol Acquired hypothyroidism Benign essential HTN Surgical History Hx of bilateral cataract extraction H/O colonoscopy History of tooth extraction History of biopsy History of inguinal hernia repair History of parathyroidectomy Family History Father S/P CABG x 4 Mother Hyperlipidemia Hypertension Brother Atherosclerosis Social History Housing: House Are you a primary acute care registered nurse to a significant other at home: No Do you presently have visiting nurse or other home services: No Alcohol intake: never Patient Tobacco Use Status: Never used Tobacco e-Cigarette/Vaping Use: Never Used Second Hand Smoke Exposure: No service: No Current occupational status: retired Cognitive needs: No Hearing needs: No Vision needs: Yes (Glasses) Questionnaire PHQ-9 Over the last 2 weeks, how often have you been bothered by any of the following problems? 1. Little interest or pleasure in doing things: more than half the days 2. Feeling down, depressed, or hopeless: not at all 3. Trouble falling or staying asleep, or sleeping too much: not at all 4. Feeling tired or having little energy: not at all 5. Poor appetite or overeating: not at all 6. Feeling bad about yourself - or that you are a failure or have let yourself or your family down: several days 7. Trouble concentrating on things, such as reading the newspaper or watching television: several days 8. Moving or speaking so slowly that other people could have noticed. Or the opposite - being so fidgety or restless that you have been moving around a lot more than usual: not at all 9. Thoughts that you would be better off or of hurting yourself in some way: not at all Total score: 4 Depression Screening Interpretation: Positive Depression Screening Done: Yes Source: Developed by Drs. Lamont Nieves, Sole Brito, Sony Kimball and colleagues, with an educational do from [employer]. Thrive Questionnaire Date Thrive assessed: 07/29/24 I am a: Patient What is your living situation today?: I have a steady place to live Within the past 12 months, did the food you bought not last and you didn't have the money to get more?: Often true Within the past 12 months, did you worry whether your food would run out before you got money to buy more?: I choose not to answer this question Do you have trouble paying for medicines?: No Do you have trouble getting transportation to medical appointments?: No Do you have trouble paying your heating and electricity bill?: No Do you have trouble taking care of your child, family member or friend?: No Do you have trouble with day-to-day activities such as bathing, preparing meals, shopping, managing finances, etc.?: No Are you currently unemployed and looking for a job?: No Are you interested in more education?: No Please select the resources that you would like help with: None Currently or been in a relationship where the following occur: No concerns reported THRIVE Score: 1 AUDIT C Alcohol Use Questionnaire (AUDIT-C) 1. How often do you have a drink containing alcohol?: Never Total Score: 0 GIULIANA-7 AMB Questionnaire GIULIANA-7 Date GIULIANA - 7 assessed: 07/29/24 Feeling nervous, anxious, or on edge: 1 = Several days Not being able to stop or control worryin = Several days Worrying too much about different things: 1 = Several days Trouble relaxin = Several days Being so restless that it is hard to sit still: 0 = Not at all Becoming easily annoyed or irritable: 0 = Not at all Feeling afraid as if something awful might happen: 0 = Not at all Total GIULIANA-7 score (0-4 normal; 5-9 mild; 10-14 moderate; 15-21 severe): 4 Source: Developed by Drs. Lamont Nieves, Sole Brito, Sony Kimball and colleagues, with an educational do from [employer]. Physical exam (Primary Care) Vital Signs: Last Vital Signs Temp 97.1 F 07/29/24 15:28 Pulse 88 07/29/24 15:28 BP 130/70 07/29/24 15:28 Pulse Ox 98 07/29/24 15:28 Oxygen Delivery Method Room Air 07/29/24 15:28 BMI result Body Mass Index 20.6 Tobacco/Smoking Status: Tobacco use Status Tobacco use date assessed 07/29/24 07/29/24 15:21 Patient Tobacco Use Status Never used Tobacco 07/29/24 15:21 e-Cigarette/Vaping Use Never Used 07/29/24 15:21 PHQ-9: PHQ-9 Score PHQ-9: Total score 4 07/29/24 15:21 Depression Screening Interpretation: Positive Thrive Assessment: Date of Thrive Assessment Date Thrive assessed 07/29/24 07/29/24 15:21 Currently or been in a relationship where the following occur: No concerns reported Coding Level of Care Code Est Pt Level 4 (07812) Complex EM visit Add On G2211 Diagnoses Acquired hypothyroidism E03.9 Benign essential HTN I10 Osteoarthritis M19.90 Assessment & Plan Assessment & Plan (1) Acquired hypothyroidism: Code(s): E03.9 - Hypothyroidism, unspecified Category: Medical Plan: BW ordered, will call with results (2) Benign essential HTN: Code(s): I10 - Essential (primary) hypertension Category: Medical Plan: BP is in range. Continue meds at same dosage. (3) Osteoarthritis: Code(s): M19.90 - Unspecified osteoarthritis, unspecified site Category: Medical Plan: ES tylenol suggested. Stretching exercises. Plan History of Present Illness The patient is a 79-year-old female presenting with fatigue and joint stiffness. She describes persistent fatigue, noting increased tiredness and difficulty getting up in the mornings, which she suspects might be due to her age. She experiences joint stiffness that is particularly bothersome in the morning, associated with her diagnosis of osteoarthritis. The stiffness, combined with discomfort, especially in her knees and hips, persists despite receiving cortisone injections. Her condition has not been resolved, leading to a previous surgical consult that was delayed due to potential scar tissue complications. The patient manages her stiffness with analgesics, specifically mentioning Tylenol, although effectiveness remains minimal. She states compliance with her hypothyroid medication, despite needing a routine blood work evaluation. The conversation highlights a concern for her ongoing state of fatigue and stiffness, which might warrant further investigation. Social History - The patient engages minimally in exercise due to knee pain and stiffness. - Participates in some physical activities, such as gardening. - Reports reduced walking activities due to pain and arthritis. - No mention of substance use; pays for medications [id number] without insurance coverage. Review of Systems - Musculoskeletal: Reports joint stiffness and osteoarthritis particularly affecting bilateral knees and possibly the hips. - General: Reports persistent fatigue. Physical Exam General: Cooperative and healthy appearing Nutritional Appearance: Well nourished Orientation/consciousness: Patient oriented x3 Limitations: No limitations Head: Normal to inspection General: Appearance normal, both eyes and all related structures Neck: Normal visual inspection Chest: Normal palpation of entire chest wall Respiratory: Normal respiratory effort Neurology: Patient oriented x3 Results - Lab Tests: Blood work not performed in over a year, pending order to evaluate thyroid function. Plan 1. Osteoarthritis - Utilize cortisone injections and extra strength Tylenol. - Consider additional interventions based on symptom progression and patient preference. 2. Hypothyroidism - Conduct blood work for thyroid assessment. - Adjust medication accordingly after evaluation. 3. Fatigue - Investigate possible connection to hypothyroidism. - Maintain current medication regime while monitoring symptoms. 4. Joint Stiffness - Use Tylenol for stiffness relief. - Encourage mild physical therapy as feasible. Discussion Notes During our discussion, we addressed the patient's osteoarthritis and related joint stiffness affecting her knees and potentially her hips. I recommended the use of extra strength Tylenol for managing her symptoms and discussed the possibility of continuing cortisone shots as needed. We also reviewed surgical intervention considerations, with the decision to avoid surgery for now due to potential complications. The patient's fatigue was discussed concerning hypothyroidism, and I indicated a need for updated blood work to assess thyroid hormone levels. We talked about ensuring adherence to her prescribed thyroid medication and agreed on conducting the blood test to guide further treatment adjustments. Patient Instructions - Take two extra strength Tylenol for joint stiffness, especially before bed if needed. - Conduct the blood work as prescribed to assess thyroid hormone levels. - Continue taking prescribed thyroid medication consistently. - Engage in mild exercises, like gentle stretching or gardening, to help maintain mobility. - Contact us if symptoms worsen or do not improve with current management.
[2024-07-29 15:28] VITALS: BP 130/70; PULSE 88; TEMP 36.2; O2SAT 98; BMI 20.6
== END 2024-07-29 15:54 | disposition home or self-care (01) ==
LOC: HO.HMCH 15:05
PROVIDERS: PCP Internal Medicine; Visit Provider Internal Medicine
DX: E03.9 Hypothyroidism, unspecified (principal); I10 Essential (primary) hypertension; M19.90 Unspecified osteoarthritis, unspecified site

== ENCOUNTER → 2024-07-29 | Outpatient (BNVA) | payer MEDICARE, SELFPAY | PROVIDERS: PCP Internal Medicine; Visit Provider Internal Medicine | DX: E78.00 Pure hypercholesterolemia, unspecified (principal); E03.9 Hypothyroidism, unspecified; I10 Essential (primary) hypertension; M19.90 Unspecified osteoarthritis, unspecified site | CPT/HCPCS: 96127; 99212 ==

== ENCOUNTER 2024-07-31 07:31 | Outpatient (REF) | payer MEDICARE, SELFPAY ==
[2024-07-31 11:46] LABS: Hematocrit 36.8 % (37.0-47.0); Hemoglobin 11.7 g/dl (12.0-16.0); Mean Corpuscular HGB Conc 31.8 g/dl (31.0-35.0); Mean Corpuscular Hemoglobin 32.5 pg (27.0-33.0); Mean Corpuscular Volume 102.2 fL (80.0-98.0); Mean Platelet Volume 11.6 fL (9.4-12.3); Platelet Count 217 X10*3/uL (160-400); Red Cell Distribution Width 12.6 % (11.0-16.0); White Blood Count 4.5 X10*3/uL (4.8-10.8)
[2024-07-31 11:58] LABS: Appearance Urine Clear; Color Urine Yellow; Glucose Urine UA Negative (Negative); Leukocyte Esterase Urine Trace (Negative); Nitrite Urine Negative (Negative); Specific Gravity - Urine 1.025 (1.005-1.025); UMIC TRIGGER UA YES; Urine Blood Negative (Negative); Urine Ketones Negative (Negative); Urine Protein Trace mg/dL (Neg-Trace)
[2024-07-31 12:04] LABS: Bacteria Urine None Seen (None Seen); Hyaline Casts Urine 0-2 /LPF (0-2); RBC Urine 0-2 /HPF (0-2); Squamous Epithelial Cell Urine 0-2 /HPF (0-2); WBC Urine 0-5 /HPF (0-5)
[2024-07-31 12:14] LABS: Alanine Aminotransferase 11 U/L (0-31); Albumin Level 4.1 g/dL (3.5-5.0); Alkaline Phosphatase 68 U/L (39-117); Anion Gap 12 (12-20); Aspartate Amino Transferase 18 U/L (5-31); Bilirubin Direct 0.2 mg/dL (0.0-0.5); Bilirubin Total 0.5 mg/dL (0.0-1.0); Blood Urea Nitrogen 25 mg/dL (9-16); Calcium 9.4 mg/dL (8.4-10.2); Carbon Dioxide 27 mmol/L (22-29); Chloride 108 mmol/L (96-108); Cholesterol 236 mg/dL (<200); Estimated Glomerular Filt Rate > 60; Glucose Random 93 mg/dL (60-115); HDL Cholesterol 92 mg/dL (>40); LDL Cholesterol Calculated 131 mg/dL (<100); Potassium 4.4 mmol/L (3.3-5.1); Sodium 143 mmol/L (135-145); Total Protein 6.8 g/dL (6.5-8.0); Triglycerides 68 mg/dL (<150)
[2024-07-31 12:17] LABS: Thyroid Stimulating Hormone 3.14 uIU/mL (0.32-4.0)
== END 2024-07-31 07:32 | disposition home or self-care (01) ==
LOC: HO.HMGCLDS 07:31
PROVIDERS: PCP Internal Medicine; Visit Provider Internal Medicine
DX: I10 Essential (primary) hypertension (principal); E78.00 Pure hypercholesterolemia, unspecified
CPT/HCPCS: 36415; 80048; 80061; 80076; 81001; 81003; 84443; 85027

== ENCOUNTER 2025-02-03 15:03 | Outpatient (AMB) | payer MEDICARE, SELFPAY ==
--- NOTE | 2025-02-03 15:08 | MHC.PC.OV ---
Vital Signs 02/03/25 15:09 Height 5 ft 5 in Weight 127 lb BMI 21.1 BP 122/80 Blood Pressure Location Lt brachial Position Sitting Pulse 74 Pulse Source Pulse Oximeter Temp 97.1 F Temp Source Temporal Artery Scan Pulse Oximetry (%) 98 Oxygen Delivery Method Room Air Intake Visit Reasons: 6mth f/u - see comments Intake Note: Patient is here to follow up on HTN, Hypothyroidism, Hypercholesterolemia. Medical Office Coordinator Required: No Plate Grainer: Present Accompanied by: Spouse Allergies meperidine (From Demerol) Allergy (Intermediate, Verified 02/03/25 15:09) NAUSEA/VOMITING Sulfa (Sulfonamide Antibiotics) (SULFA (SULFONAMIDE ANTIBIOTICS)) Allergy (Intermediate, Verified 02/03/25 15:09) RASH, HIVES, SWELLING Tobacco use date assessed: 02/03/25 Fall risk assessment: No Falls in past year Last assessed Fall Risk: 02/03/25 Dental Screening Dental Screen Date: 07/29/24 [facility] Medical History (Updated 07/29/24 @ 15:41 by Sandip Tinoco MD) Osteoarthritis Vitamin D deficiency Pure hypercholesterolemia PONV (postoperative nausea and vomiting) Arthritis Elevated cholesterol Acquired hypothyroidism Benign essential HTN Surgical History Hx of bilateral cataract extraction H/O colonoscopy History of tooth extraction History of biopsy History of inguinal hernia repair History of parathyroidectomy Family History Father S/P CABG x 4 Mother Hyperlipidemia Hypertension Brother Atherosclerosis Social History Housing: House Are you a primary progressive care unit registered nurse to a significant other at home: No Do you presently have visiting nurse or other home services: No Alcohol intake: never Patient Tobacco Use Status: Never used Tobacco e-Cigarette/Vaping Use: Never Used Second Hand Smoke Exposure: No service: No Current occupational status: retired Cognitive needs: No Hearing needs: No Vision needs: Yes (Glasses) Questionnaire Thrive Questionnaire Date Thrive assessed: 07/29/24 I am a: Patient What is your living situation today?: I have a steady place to live Within the past 12 months, did the food you bought not last and you didn't have the money to get more?: Often true Within the past 12 months, did you worry whether your food would run out before you got money to buy more?: I choose not to answer this question Do you have trouble paying for medicines?: No Do you have trouble getting transportation to medical appointments?: No Do you have trouble paying your heating and electricity bill?: No Do you have trouble taking care of your child, family member or friend?: No Do you have trouble with day-to-day activities such as bathing, preparing meals, shopping, managing finances, etc.?: No Are you currently unemployed and looking for a job?: No Are you interested in more education?: No Please select the resources that you would like help with: None Currently or been in a relationship where the following occur: No concerns reported THRIVE Score: 1 GIULIANA-7 AMB Questionnaire GIULIANA-7 Date GIULIANA - 7 assessed: 07/29/24 Source: Developed by Drs. Lamont Nieves, Sole Brito, Sony Kimball and colleagues, with an educational do from [employer]. Physical exam (Primary Care) Vital Signs: Last Vital Signs Temp 97.1 F 02/03/25 15:09 Pulse 74 02/03/25 15:09 BP 122/80 02/03/25 15:09 Pulse Ox 98 02/03/25 15:09 Oxygen Delivery Method Room Air 02/03/25 15:09 BMI result Body Mass Index 21.1 Tobacco/Smoking Status: Tobacco use Status Tobacco use date assessed 02/03/25 02/03/25 15:12 Patient Tobacco Use Status Never used Tobacco 02/03/25 15:12 e-Cigarette/Vaping Use Never Used 02/03/25 15:12 Thrive Assessment: Date of Thrive Assessment Date Thrive assessed 07/29/24 02/03/25 15:12 Currently or been in a relationship where the following occur: No concerns reported Coding Level of Care Code Est Pt Level 4 (60489) Complex EM visit Add On G2211 Diagnoses Benign essential HTN I10 Assessment & Plan Assessment & Plan (1) Benign essential HTN: Code(s): I10 - Essential (primary) hypertension Category: Medical Plan: History of Present Illness - The patient is a 79-year-old female presenting for evaluation of fatigue. - She reports feeling tired for the past year, although she remains able to function and perform all her usual activities. - She reports waking up a couple of times at night but denies napping during the day. - Blood work from July showed an increasing red blood cell size. - The patient has a history of anemia and is not currently taking vitamin B12 or folic acid supplements. - The patient has an unresolved, intermittent lesion on her upper eyelid, which she manages with Vaseline. - She notes that this lesion clears up after she receives cortisone injections in her knees. - She reports her appetite is good and her bowel habits are normal. - She awakens approximately three times per night to urinate, which she attributes to her water intake, and denies any burning with urination. - She has received both the flu and COVID-19 vaccines. Social History - Alcohol use: The patient denies significant alcohol consumption. - Diet: The patient reports a good appetite and is mindful of eating healthy foods. - Functional Status: The patient is able to perform her usual activities. Review of Systems - General: Reports persistent fatigue for the past year. - Integumentary: Reports an intermittent lesion on the upper eyelid. - Gastrointestinal: Reports a good appetite. Denies abnormal bowel habits. - Genitourinary: Reports nocturia approximately three times per night. Denies dysuria. - Neurological: Reports interrupted sleep, waking a couple of times nightly. Physical Exam General: Cooperative and healthy appearing Nutritional Appearance: Well nourished Orientation/consciousness: Patient oriented x3 Limitations: No limitations Head: Normal to inspection General: Appearance normal, both eyes and all related structures Neck: Normal visual inspection Chest: Normal palpation of entire chest wall Respiratory: Deep breaths observed, no abnormalities noted. ormal respiratory effort Neurology: Patient oriented x3. No neurological deficits reported. Results - Labs: Blood work from July 2022 revealed an increasing red blood cell size. Plan - Will obtain labs to investigate fatigue and macrocytosis. - Lab orders will include vitamin B12 and folic acid levels. - The upper lip lesion will be monitored without immediate intervention. Discussion Notes I reviewed the patient's concern about persistent fatigue and noted that her blood work from July showed an increasing red blood cell size. I explained that we would order new labs to investigate this, including checking her vitamin B12 and folic acid levels, as a deficiency could be contributing to her symptoms. We will determine the next steps after reviewing the results. Patient Instructions - Please go to the lab to have your blood drawn. - The blood tests will check your blood cell counts, as well as your vitamin B12 and folic acid levels, to help us understand why you are feeling tired. - For the recurring spot on your eyelid, continue using Vaseline on it as you have been. Orders: Orders Complete Blood Count no Diff Today I10 - Essential (primary) hypertension Liver Panel Today I10 - Essential (primary) hypertension Basic Metabolic Panel Today I10 - Essential (primary) hypertension Lipid Panel Today I10 - Essential (primary) hypertension Thyroid Stimulating Hormone Today I10 - Essential (primary) hypertension UA and rflx microscopic Today I10 - Essential (primary) hypertension Vitamin B12 and Folate Today I10 - Essential (primary) hypertension
[2025-02-03 15:09] VITALS: BP 122/80; PULSE 74; TEMP 36.2; O2SAT 98; BMI 21.1
--- OUTSIDE RECORDS SUMMARY | 2025-02-03 18:19 | XMS_ITS | Patient Health Record ---
Author Organization [facility] Address [address] [place] [address] Care Team Providers Care Log Handling Equipment Operator Name Role Phone Laura (RETIRED) Alok DUARTE Primary Care Provide Lamont Lopez Unavailable [phone] Allergies Allergen (clinical drug ingredient) Drug/Non Drug Allergy documented on EMR Reaction Allergy Type Onset Date Status Sulfa Unknown Drug Allergy Active Reason For Referral No Information Medications Medication SIG (Take, Route, Frequency, Duration) Notes Start Date End Date Status Simvastatin Active amLODIPine Besylate Active Lorazepam prn for anxieity and stress Active Centrum Silver prn Activ e Vitamin B-12 ER 2000 MCG 1 tablet Orally Once a day; Duration: 30 day(s) Active Synthroid 50 MCG Orally Act steffany Fish Oil Active Vitamin D 2000 UNIT Orally Active Aspirin 81 MG Orally Active Immunizations Vaccine Route Administration Date Status Comme nts Influenza Unknown 12/22/2017 Administered Social History Tobacco Use: Social History Observation Description Date Details (start date - stop date) Never Smoker NA - NA Tobacco Use/Smoking Question Answer Notes Patient is a nonsmoker Alcohol Screen Question Answer Notes Did you have a drink contain ing alcohol in the past year? Yes How often did you have a dri nk containing alcohol in the past year? Monthly or less (1 point) How many drinks did you have on a typical day when you were drinking in the past year? 1 or 2 drinks (0 point) How often did you have 6 or more drinks on one occasion in the past year? Never (0 point) Points 1 Interpretation Negative Section Notes: Nonsmoker; no sig alcohol Nonsmoker; no sig alcohol Problems Problem Type SNOMED Code ICD Code Onset Dates Problem Status W/U Status Risk Notes Problem Screening for malignant neoplasm of colon (375435208) Encounter for screening for malignant neoplasm of colon (Z12.11) Active confirmed Problem Constipation (89707013) Constipation, unspecified constipation type (K59.00) Active confirmed Problem Right lower quadrant pain (320715462) Right lower quadrant abdominal pain (R10.31) Active confirmed Problem Irritable bowel syndrome (30115142) Irritable bowel syndrome, unspecified type (K58.9) Active confirmed Plan Of Treatment No Information Insurance Providers Payer Name Payer Address Payer Phone Subscriber Number Group Number Insured Name Patient Relationship to Insured Coverage Start Date Coverage End Date [facility] [address] [place] [phone] [id number] SHIRA WILKERSON Self - patient is the insured Medical (General) History Medical History History ICD Code Hypertension Denies [place],DM,CVA,Lung disease,renal dise ase Hypothyroidism Anxiety Negative screening colonoscopy in 2003 Hyperlipidemia IBS Surgical History Surgery Date(Month/Year) Parathyroidectomy 1999? Right inguinal hernia- Dr. Reed 2016
== END 2025-02-03 15:48 | disposition home or self-care (01) ==
LOC: HO.HMCH 15:04
PROVIDERS: PCP Internal Medicine; Visit Provider Internal Medicine
DX: I10 Essential (primary) hypertension (principal)

== ENCOUNTER → 2025-02-03 15:03 | Outpatient (BNVA) | payer MEDICARE, SELFPAY | PROVIDERS: PCP Internal Medicine; Visit Provider Internal Medicine | DX: I10 Essential (primary) hypertension (principal); R53.83 Other fatigue | CPT/HCPCS: 99212 ==